=== PATIENT | male | born 1975 | race Hispanic/Latino ===

== ENCOUNTER 2020-10-29 01:04 | Inpatient (IN) | payer OTHER ==
[2020-10-29] VITALS (8 sets, daily range): BP systolic 96–135; BP diastolic 56–80
[~2020-10-29] VITALS: Ht 182.9 cm; Wt 122.5 kg
[2020-10-29] MEDS ORDERED: METOCLOPRAMIDE 10 MG/2 ML VIAL IVP SCH (02:45)
[2020-10-29] MEDS ORDERED: LACTATED RINGERS 1000ML 1,000 ML IV SCH (02:45)
[2020-10-29] MEDS ORDERED: PANTOPRAZOLE 40 MG/VIAL IVP SCH (02:45)
[2020-10-29] MEDS ORDERED: FAMOTIDINE/PF 20 MG/2 ML VIAL IV SCH (02:45)
[2020-10-29] MEDS ORDERED: ONDANSETRON HCL 4 MG/2 ML VIAL IVP SCH (02:45)
[2020-10-29 03:00] LABS: BASOPHILS % (AUTO) 0.6 % (0.0-5.0); EOSINOPHILS % (AUTO) 0.6 % (0.0-8.0); LYMPHOCYTES % (AUTO) 16.6 % (21.0-51.0); MEAN CORPUSCULAR HGB CONC 34.8 g/dL (32.0-36.0); MEAN CORPUSCULAR VOLUME 89.1 fL (79-99); MONOCYTES % (AUTO) 6.6 % (3.0-13.0); NEUTROPHILS % (AUTO) 75.1 % (40.0-77.0); PLATELET COUNT (AUTO) 130 K/uL (130-400); RED BLOOD CELL COUNT(AUTO) 3.03 MIL/uL (4.50-6.20); RED CELL DISTRIBUTION WIDTH 13.9 % (11.0-15.5); WHITE BLOOD COUNT (AUTO) 19.7 K/uL (4.8-10.8)
[2020-10-29 03:18] LABS: INR 1.27 (0.85-1.15); PROTHROMBIN TIME 13.5 SEC (9.6-11.6)
[2020-10-29 03:25] LABS: CREATININE 0.8 mg/dL (0.5-1.5); POTASSIUM 3.8 mmol/L (3.5-5.1)
[2020-10-29 03:29] LABS: BILIRUBIN,TOTAL 1.1 mg/dL (0.2-1.0); TOTAL PROTEIN, SERUM 6.4 g/dL (6.0-8.3)
[2020-10-29] MEDS: PANTOPRAZOLE SODIUM 80 MG in SODIUM CHLORIDE 0.9% 100 ML IV SCH ×2 (03:55→04:05)
[2020-10-29] MEDS ORDERED: ONDANSETRON HCL 4 MG/2 ML VIAL IV PRN (05:00)
[2020-10-29] MEDS: LACTATED RINGERS 1000ML 1,000 ML IV SCH ×2 (05:15→20:27)
[2020-10-29 07:09] LABS: APPEARANCE,URINE Clear (CLEAR); BILIRUBIN,URINE Negative (NEGATIVE); COLOR,URINE Yellow (YELLOW); GLUCOSE, URINE (UA) >=1000 mg/dL (NEGATIVE); KETONES,URINE 15 mg/dL (NEGATIVE); LEUKOCYTE ESTERASE ,URINE Negative (NEGATIVE); NITRATE,URINE Negative (NEGATIVE); OCCULT BLOOD,URINE Negative (NEGATIVE); PH,URINE 5.5 (5.0-8.0); PROTEIN,URINE Negative (NEGATIVE)
[2020-10-29 07:11] LABS: MEAN CORPUSCULAR HEMOGLOBIN 30.6 pg (27.0-33.0); MEAN CORPUSCULAR HGB CONC 33.8 g/dL (32.0-36.0); MEAN CORPUSCULAR VOLUME 90.5 fL (79-99); RED BLOOD CELL COUNT(AUTO) 2.32 MIL/uL (4.50-6.20); WHITE BLOOD COUNT (AUTO) 14.8 K/uL (4.8-10.8)
[2020-10-29 07:17] LABS: HEMOGLOBIN A1C 7.4 % (4.0-6.0)
[2020-10-29 07:21] LABS: % IRON SATURATION 65.5 % (30-44)
[2020-10-29 07:24] LABS: ALBUMIN 2.5 g/dL (3.5-5.0); BILIRUBIN,DIRECT 0.2 mg/dL (0.0-0.3); CREATININE 0.7 mg/dL (0.5-1.5); POTASSIUM 4.1 mmol/L (3.5-5.1); TOTAL PROTEIN, SERUM 5.3 g/dL (6.0-8.3)
[2020-10-29 07:33] LABS: BACTERIA,URINE Rare /HPF (None Seen); MUCUS,URINE Few LPF (None Seen); RBC,URINE 0-1 /HPF (0-1); SQUAMOUS EPITHELIAL CELL,UR Rare /HPF (0-2); WBC,URINE 0-1 /HPF (0-1)
[2020-10-29] MEDS: CEFTRIAXONE SODIUM 1 GM IVP SCH ×2 (08:07→20:27)
[2020-10-29] MEDS ORDERED: PANTOPRAZOLE SODIUM 80 MG in SODIUM CHLORIDE 0.9% 100 ML IV SCH (09:00)
[2020-10-29] MEDS ORDERED: PANTOPRAZOLE 40 MG/VIAL ONE (14:24)
[2020-10-29 14:44] LABS: AMPHET/METH SCREEN,URINE NEGATIVE (NEGATIVE); BARBITURATE SCREEN, URINE NEGATIVE (NEGATIVE); BENZODIAZEPINES SCREEN,URINE NEGATIVE (NEGATIVE); CANNABINOID SCREEN,URINE NEGATIVE (NEGATIVE); COCAINE SCREEN,URINE NEGATIVE (NEGATIVE); OPIATE SCREEN,URINE NEGATIVE (NEGATIVE); PHENCYCLIDINE SCREEN,URINE NEGATIVE (NEGATIVE)
[2020-10-29 14:45] LABS: HEMATOCRIT 21.7 % (42-54)
[2020-10-29] MEDS: INSULIN HUMULIN R 100 UNIT/ML 3ML SQ SCH ×2 (20:29→20:30)
[2020-10-30] VITALS (16 sets, daily range): BP systolic 106–144; BP diastolic 52–79
[2020-10-30] MEDS ORDERED: SODIUM CHLORIDE 0.9% 250 ML ONE (01:34)
[2020-10-30 06:17] LABS: BASOPHILS % (AUTO) 0.5 % (0.0-5.0); EOSINOPHILS % (AUTO) 0.9 % (0.0-8.0); HEMATOCRIT 22.4 % (42-54); LYMPHOCYTES % (AUTO) 26.8 % (21.0-51.0); MEAN CORPUSCULAR HEMOGLOBIN 30.4 pg (27.0-33.0); MEAN CORPUSCULAR HGB CONC 33.9 g/dL (32.0-36.0); MEAN CORPUSCULAR VOLUME 89.6 fL (79-99); MONOCYTES % (AUTO) 9.7 % (3.0-13.0); NEUTROPHILS % (AUTO) 61.4 % (40.0-77.0); NUCLEATED RED BLOOD CELLS 0.6 % (0.0-0.19); PLATELET COUNT (AUTO) 86 K/uL (130-400); RED CELL DISTRIBUTION WIDTH 14.2 % (11.0-15.5); WHITE BLOOD COUNT (AUTO) 12.4 K/uL (4.8-10.8)
[2020-10-30 06:37] LABS: ALBUMIN 2.6 g/dL (3.5-5.0); BILIRUBIN,TOTAL 0.9 mg/dL (0.2-1.0); CREATININE 0.7 mg/dL (0.5-1.5); POTASSIUM 3.7 mmol/L (3.5-5.1); TOTAL PROTEIN, SERUM 5.6 g/dL (6.0-8.3)
[2020-10-30] MEDS: INSULIN HUMULIN R 100 UNIT/ML 3ML SQ SCH ×4 (07:00→20:13)
[2020-10-30] MEDS: CEFTRIAXONE SODIUM 1 GM IVP SCH ×2 (07:08→20:13)
[2020-10-30 07:16] LABS: HEPATITIS A ANTIBODY IGM Negative (Negative); HEPATITIS B CORE IGM Negative (Negative); HEPATITIS Bs ANTIGEN SCREEN P Negative (Negative)
[2020-10-30] MEDS ORDERED: PROPOFOL 10 MG/ML 20ML VIAL IV ONE (11:14)
[2020-10-30] MEDS ORDERED: SIMETHICONE 40 MG/0.6 ML ML ONE (11:16)
[2020-10-30] MEDS ORDERED: MEPERIDINE-PF 25 MG/ML SYG ONE (11:48)
[2020-10-30] MEDS ORDERED: OCTREOTIDE ACETATE 1,250 MCG in SODIUM CHLORIDE 0.9% 250 ML IV SCH (13:15)
[2020-10-30] MEDS ORDERED: IOHEXOL 350 MG/ML 100ML INFUS..BTL IV ONE (14:20)
[2020-10-30] MEDS: PANTOPRAZOLE 40 MG/VIAL IVP SCH (20:13)
[2020-10-30] MEDS: ACETAMINOPHEN 325 MG TAB PO PRN (21:21)
[2020-10-31 00:08] VITALS: BP 115/53
[2020-10-31 04:16] VITALS: BP 124/80
[2020-10-31 04:41] LABS: HEMATOCRIT 21.6 % (42-54); MEAN CORPUSCULAR HEMOGLOBIN 30.4 pg (27.0-33.0); MEAN CORPUSCULAR HGB CONC 33.8 g/dL (32.0-36.0); NUCLEATED RED BLOOD CELLS 0.5 % (0.0-0.19); RED BLOOD CELL COUNT(AUTO) 2.4 MIL/uL (4.50-6.20); RED CELL DISTRIBUTION WIDTH 14.6 % (11.0-15.5); WHITE BLOOD COUNT (AUTO) 7.9 K/uL (4.8-10.8)
[2020-10-31 04:56] LABS: CREATININE 0.7 mg/dL (0.5-1.5); POTASSIUM 3.5 mmol/L (3.5-5.1)
[2020-10-31] MEDS: INSULIN HUMULIN R 100 UNIT/ML 3ML SQ SCH ×4 (05:32→20:48)
[2020-10-31] MEDS: ACETAMINOPHEN 325 MG TAB PO PRN ×2 (05:32→18:13)
[2020-10-31 08:00] VITALS: BP 133/78
[2020-10-31] MEDS: CEFTRIAXONE SODIUM 1 GM IVP SCH ×2 (09:44→20:48)
[2020-10-31] MEDS: PANTOPRAZOLE 40 MG/VIAL IVP SCH ×2 (09:45→20:47)
[2020-10-31 16:00] VITALS: BP 122/71
[2020-10-31 19:00] VITALS: BP 126/69
[2020-10-31 23:00] VITALS: BP 116/71
[2020-11-01 03:00] VITALS: BP 98/57
[2020-11-01 05:59] LABS: HEMATOCRIT 21.5 % (42-54); MEAN CORPUSCULAR HEMOGLOBIN 31.2 pg (27.0-33.0); MEAN CORPUSCULAR VOLUME 91.9 fL (79-99); PLATELET COUNT (AUTO) 65 K/uL (130-400); RED BLOOD CELL COUNT(AUTO) 2.34 MIL/uL (4.50-6.20); RED CELL DISTRIBUTION WIDTH 16.1 % (11.0-15.5); WHITE BLOOD COUNT (AUTO) 5.6 K/uL (4.8-10.8)
[2020-11-01 06:13] LABS: CREATININE 0.7 mg/dL (0.5-1.5); POTASSIUM 3.8 mmol/L (3.5-5.1)
[2020-11-01] MEDS: INSULIN HUMULIN R 100 UNIT/ML 3ML SQ SCH ×2 (07:07→11:19)
[2020-11-01 08:00] VITALS: BP 128/72
[2020-11-01] MEDS: CEFTRIAXONE SODIUM 1 GM IVP SCH (08:04)
[2020-11-01] MEDS: PANTOPRAZOLE 40 MG/VIAL IVP SCH (08:04)
[2020-11-01] MEDS ORDERED: EPOETIN ALFA-EPBX (NON-ESRD) 10,000 UNIT/ML VIAL SQ SCH (13:00)
[2020-11-01] MEDS ORDERED: PANT40TA54 PO (13:06)
== END 2020-11-01 14:00 | disposition home or self-care (01) | DRG 377 ==
LOC: EDH 01:04 → EDHIP 01:05 → UNDOADMIN 01:15 → EDHIP 01:15 → 2DH 15:30
PROVIDERS: ADMIT Internal Medicine; ATTEND Internal Medicine
PROC: 30233N1 Transfusion of Nonautologous Red Blood Cells into Peripheral Vein, Percutaneous Approach (ICD-10-PCS; principal; 2020-10-30)
PROC: 06L38CZ Occlusion of Esophageal Vein with Extraluminal Device, Via Natural or Artificial Opening Endoscopic (ICD-10-PCS; 2020-10-30)
PROC: 30233K1 Transfusion of Nonautologous Frozen Plasma into Peripheral Vein, Percutaneous Approach (ICD-10-PCS; 2020-10-30)
DX: K92.2 Gastrointestinal hemorrhage, unspecified (principal); R57.8 Other shock; D62 Acute posthemorrhagic anemia; E87.2 Acidosis; R57.9 Shock, unspecified; K92.0 Hematemesis; I85.00 Esophageal varices without bleeding; E11.65 Type 2 diabetes mellitus with hyperglycemia; E66.01 Morbid (severe) obesity due to excess calories; D72.829 Elevated white blood cell count, unspecified; D69.6 Thrombocytopenia, unspecified; E86.0 Dehydration; F55.8 Abuse of other non-psychoactive substances; Z20.822 Contact with and (suspected) exposure to COVID-19; D64.9 Anemia, unspecified; T39.395A Adverse effect of other nonsteroidal anti-inflammatory drugs [NSAID], initial encounter; Y92.89 Other specified places as the place of occurrence of the external cause
CPT/HCPCS: 36415; 43244; 71045; 74160; 76705; 80048; 80053; 80074; 80076; 80305; 81001; 82948; 83036; 83540; 83550; 83605; 85014; 85018; 85025; 85027; 85610; 86850; 86900; 86901; 86923; 86927; 93005; A4606; C9113; G0378; J0696; J1815; J2175; J2354; J2405; J2704; J2765; J3490; J7030; J7050; J7120; P9016; P9017; Q9967

== ENCOUNTER 2021-12-22 01:45 | Inpatient (IN) | payer OTHER ==
[~2021-12-22] VITALS: Ht 180.3 cm; Wt 121.9 kg
[~2021-12-22 01:45] MED LIST: PANT40TA54 PO
[2021-12-22] MEDS ORDERED: PANTOPRAZOLE 40 MG/VIAL IVP ONE (02:30)
[2021-12-22] MEDS ORDERED: 0.9% NACL 500ML IV.SOLN 500 ML IV ONE (02:30)
[2021-12-22 02:54] LABS: APPEARANCE,URINE CLEAR (CLEAR); BILIRUBIN,URINE NEGATIVE (NEGATIVE); COLOR,URINE YELLOW (YELLOW); GLUCOSE, URINE (UA) NEGATIVE (NEGATIVE); KETONES,URINE NEGATIVE (NEGATIVE); LEUKOCYTE ESTERASE ,URINE NEGATIVE (NEGATIVE); NITRATE,URINE NEGATIVE (NEGATIVE); OCCULT BLOOD,URINE NEGATIVE (NEGATIVE); PH,URINE 7.5 (5.0-8.0); PROTEIN,URINE NEGATIVE (NEGATIVE)
[2021-12-22 02:55] LABS: BASOPHILS % (AUTO) 0.5 % (0.0-5.0); EOSINOPHILS % (AUTO) 1.8 % (0.0-8.0); HEMATOCRIT 30.8 % (42-54); MEAN CORPUSCULAR HEMOGLOBIN 27.8 pg (27.0-33.0); MEAN CORPUSCULAR HGB CONC 33.1 g/dL (32.0-36.0); MEAN CORPUSCULAR VOLUME 83.9 fL (79-99); MONOCYTES % (AUTO) 8.3 % (3.0-13.0); NEUTROPHILS % (AUTO) 67.2 % (40.0-77.0); PLATELET COUNT (AUTO) 89 K/uL (130-400); RED BLOOD CELL COUNT(AUTO) 3.67 MIL/uL (4.50-6.20); RED CELL DISTRIBUTION WIDTH 14.4 % (11.0-15.5); WHITE BLOOD COUNT (AUTO) 8.2 K/uL (4.8-10.8)
[2021-12-22 03:00] LABS: CREATININE 0.7 mg/dL (0.5-1.5); POTASSIUM 3.8 mmol/L (3.5-5.1)
[2021-12-22] MEDS ORDERED: CEFTRIAXONE 1G VIAL IVP ONE (03:00)
[2021-12-22] MEDS ORDERED: OCTREOTIDE ACETATE 100 MCG/ML AMP IVP ONE (03:00)
[2021-12-22] MEDS ORDERED: ONDANSETRON 4MG INJ IVP ONE (03:00)
[2021-12-22] MEDS ORDERED: OCTREOTIDE ACETATE 1,000 MCG in DEXTROSE 5%-WATER 195 ML IV SCH (03:00)
[2021-12-22 03:03] LABS: INR 1.2 (0.85-1.15); PROTHROMBIN TIME 12.9 SEC (9.6-11.6)
[2021-12-22 03:05] LABS: ALBUMIN 3.4 g/dL (3.5-5.0); TOTAL PROTEIN, SERUM 7.3 g/dL (6.0-8.3)
[2021-12-22] MEDS: OCTREOTIDE ACETATE 1,250 MCG in 0.9% NACL 250ML 250 ML IV SCH (03:10)
[2021-12-22] MEDS ORDERED: MORPHINE 4 MG SYG IV PRN (05:00)
[2021-12-22] MEDS ORDERED: ONDANSETRON 4MG INJ IV PRN (05:00)
[2021-12-22] MEDS ORDERED: MORPHINE 2 MG SYG IV PRN (05:00)
[2021-12-22] MEDS ORDERED: HYDRALAZINE 20MG/ML VIAL IV PRN (05:00)
[2021-12-22] MEDS: PANTOPRAZOLE 40MG INJ 80 MG in 0.9%NACL 100ML 100 ML IV SCH ×2 (05:09→14:34)
[2021-12-22] MEDS: LACTATED RINGERS 1000ML 1,000 ML IV SCH (05:15)
[2021-12-22 07:16] VITALS: BP 125/79
[2021-12-22] MEDS ORDERED: COMPOUND IV REFRIGERATED 1 EACH IVSOLN MISC PRN (12:00)
[2021-12-22 12:11] VITALS: BP 120/70
[2021-12-22 16:22] VITALS: BP 132/76
[2021-12-22 20:11] VITALS: BP 118/65
[2021-12-22 23:41] VITALS: BP 99/55
[2021-12-23] VITALS (23 sets, daily range): BP systolic 95–130; BP diastolic 49–77
[2021-12-23] MEDS: LACTATED RINGERS 1000ML 1,000 ML IV SCH ×3 (01:00→20:33)
[2021-12-23 05:05] LABS: BASOPHILS % (AUTO) 0.8 % (0.0-5.0); EOSINOPHILS % (AUTO) 2.4 % (0.0-8.0); HEMATOCRIT 27.2 % (42-54); LYMPHOCYTES % (AUTO) 23.6 % (21.0-51.0); MEAN CORPUSCULAR HEMOGLOBIN 27.7 pg (27.0-33.0); MEAN CORPUSCULAR HGB CONC 32.7 g/dL (32.0-36.0); MEAN CORPUSCULAR VOLUME 84.7 fL (79-99); MONOCYTES % (AUTO) 11.9 % (3.0-13.0); NEUTROPHILS % (AUTO) 61.3 % (40.0-77.0); PLATELET COUNT (AUTO) 53 K/uL (130-400); RED BLOOD CELL COUNT(AUTO) 3.21 MIL/uL (4.50-6.20); RED CELL DISTRIBUTION WIDTH 14.5 % (11.0-15.5); WHITE BLOOD COUNT (AUTO) 3.7 K/uL (4.8-10.8)
[2021-12-23 05:28] LABS: CREATININE 0.8 mg/dL (0.5-1.5)
[2021-12-23 05:37] LABS: INR 1.2 (0.85-1.15); PROTHROMBIN TIME 12.9 SEC (9.6-11.6)
[2021-12-23 05:38] LABS: PARTIAL THROMBOPLASTIN TIME 27.5 SEC (26.3-35.5)
[2021-12-23] MEDS: PANTOPRAZOLE 40MG INJ 80 MG in 0.9%NACL 100ML 100 ML IV SCH ×2 (05:46→20:33)
[2021-12-23] MEDS ORDERED: PROPOFOL 10 MG/ML 20ML VIAL IV ONE ×2 (18:05)
[2021-12-23] MEDS ORDERED: MEPERIDINE-PF 50 MG/ML SYG ONE (18:46)
[2021-12-24 03:57] VITALS: BP 120/60
[2021-12-24 05:04] LABS: HEMATOCRIT 27.5 % (42-54); MEAN CORPUSCULAR HEMOGLOBIN 28.4 pg (27.0-33.0); MEAN CORPUSCULAR HGB CONC 33.5 g/dL (32.0-36.0); MEAN CORPUSCULAR VOLUME 84.9 fL (79-99); RED BLOOD CELL COUNT(AUTO) 3.24 MIL/uL (4.50-6.20); RED CELL DISTRIBUTION WIDTH 14.4 % (11.0-15.5)
[2021-12-24 05:25] LABS: CREATININE 0.7 mg/dL (0.5-1.5); POTASSIUM 3.9 mmol/L (3.5-5.1)
[2021-12-24] MEDS: OCTREOTIDE ACETATE 1,250 MCG in 0.9% NACL 250ML 250 ML IV SCH (05:55)
[2021-12-24] MEDS: LACTATED RINGERS 1000ML 1,000 ML IV SCH (06:06)
[2021-12-24 08:08] VITALS: BP 118/67
[2021-12-24] MEDS ORDERED: PANT40TA54 PO (10:34)
[2021-12-24 11:58] VITALS: BP 127/64
== END 2021-12-24 14:45 | disposition home or self-care (01) | DRG 378 ==
LOC: EDH 01:45 → EDHIP 01:46 → 3DH 08:00
PROVIDERS: ADMIT Hospitalist; ATTEND Hospitalist
PROC: 06L38CZ Occlusion of Esophageal Vein with Extraluminal Device, Via Natural or Artificial Opening Endoscopic (ICD-10-PCS; principal; 2021-12-23)
DX: K29.01 Acute gastritis with bleeding (principal); D61.818 Other pancytopenia; D64.9 Anemia, unspecified; E66.9 Obesity, unspecified; I25.10 Atherosclerotic heart disease of native coronary artery without angina pectoris; I85.10 Secondary esophageal varices without bleeding; K74.60 Unspecified cirrhosis of liver; Z20.822 Contact with and (suspected) exposure to COVID-19; Z83.3 Family history of diabetes mellitus; Z82.49 Family history of ischemic heart disease and other diseases of the circulatory system; I25.2 Old myocardial infarction; Z68.37 Body mass index [BMI] 37.0-37.9, adult
CPT/HCPCS: 36415; 43244; 74176; 80048; 80053; 81003; 82270; 85025; 85027; 85610; 85730; 86677; 86850; 86900; 86901; 87635; 93005; 99291; A4606; C9113; G0378; J0696; J2175; J2270; J2354; J2704; J7030; J7050; J7060; J7120

== ENCOUNTER 2024-09-24 19:25 | Inpatient (IN) | payer BC ==
[~2024-09-24] VITALS: Ht 167.6 cm; Wt 99.5 kg
[~2024-09-24 19:25] MED LIST changes: +PANT40VI PO; +PROP10TA72 PO
--- NOTE | 2024-09-24 20:38 | ERN ---
General Chief Complaint: Multiple Complaints Stated Complaint: BACK PAIN, SWOLLEN HAND AND FEET Time Seen by MD: 19:28 Source: patient, family History of Present Illness Initial Comments Patient is a 49-year-old male who was here on the 10 of September where he received an injection to his sciatic nerve. For the last week his neurological symptoms seemed to have gotten worse to the point that he can not even move his left arm because of shoulder pain. His right hand is swollen and extremely painful. 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 He also has increased swelling to bilateral legs. No fevers or chills no associated GI symptoms no chest pain or shortness of breath. Allergies: Coded Allergies: No Known Drug Allergies (Unverified Allergy, Unknown, 10/29/20) Home Meds Active Scripts Pantoprazole Sodium (Protonix IV) 40 Mg Vial, 40 MG PO DAILY for 60 Days, #60 MG Prov:JED DRAKE NP 06/05/23 Propranolol HCl (Inderal) 10 Mg Tab, 10 MG PO DAILY for 30 Days, #30 TAB Prov:JED DRAKE NP 06/05/23 Pantoprazole Sodium (Pantoprazole Sodium) 40 Mg Tablet.dr, 40 MG PO DAILY, #30 TAB 2 Refills Prov:CHRISTIANO OCONNOR 12/24/21 Past Medical History Past Medical History: Anemia, Other Medical History Other: GASTRIC ULCERS, ESOPHAGEAL VARICIES, SCIATICA Past Surgical History: None Surgical History Other: EGD Social History Social History: Negative, Lives with family Constitutional: (+) chills EENTM: (+) eye pain, (+) blurred vision, (+) tearing, (+) double vision Respiratory: (+) cough, (+) orthopnea Cardiovascular: (+) chest pain Gastrointestinal/Abdominal: (+) nausea, (+) vomiting Skin: (-) laceration, (-) contusion, (-) abrasion, (-) abscess, (-) rash, (-) change in color, (-) change in hair, (-) change in nails, (-) diaphoresis, (-) dryness, (-) other documentation Neuro: (-) altered mental status, (-) headache, (-) syncope, (-) paralysis, (-) numbness, (-) seizure, (-) pre-existing deficit, (-) tremors, (-) weakness, (-) dizziness, (-) slurred speech, (-) vertigo, (-) other documentation Physical Exam General Appearance: (+) moderate distress Orientation: (+) alert Head/Face Trauma: No Eye: bilateral eye normal inspection, bilateral eye PERRL, bilateral eye EOMI Ear, Nose, Throat: (+) hearing grossly normal, (+) normal ENT inspection, (+) moist mucous membraine Ear, Nose, Throat Comment Patient does have leukoplakia on his gums and his cheeks and tongue. Neck: (-) normal inspection, (-) supple, (-) full range of motion, (-) no JVD, (-) non-tender, (-) no bruit, (-) tender, (-) limited range of motion, (-) tender lateral, (-) tender midline, (-) thyromegaly, (-) lymphadenopathy, (-) masses, (-) carotid bruit, (-) other documentaion Respiratory: (+) chest non-tender, (+) lungs clear, (+) well ventilated Heart: (+) regular, (+) no gallop Vascular Comment Patient does have bilateral lower extremity edema. 3+ pitting Gastrointestinal: (+) soft, (+) non-tender, (+) no organomegaly Back: (+) normal inspection, (+) no CVA tenderness Extremities Comment Patient has difficulty abducting his left arm from his body it is tender along the tract of the supraspinatus muscle. Neurologic/Psychiatric: (+) no sensory deficits Results Laboratory and Microbiology Lab and Micro Result Laboratory Tests Test 09/24/24 20:47 09/24/24 22:18 09/25/24 02:04 Sodium Level 136 mmol/L (136-145) Potassium Level 4.8 mmol/L (3.5-5.1) Chloride Level 103 mmol/L (101-111) Carbon Dioxide Level 27 mmol/L (21-32) Blood Urea Nitrogen 32 mg/dL (7-18) H Creatinine 1.0 mg/dL (0.5-1.3) Glomerular Filtration Rate Calc 92 mL/min (>90) Random Glucose 271 mg/dL (70-105) H Lactic Acid Level 2.5 mmol/L (0.8-2.5) 1.7 mmol/L (0.8-2.5) Total Calcium 7.5 mg/dL (8.5-10.1) L Total Bilirubin 1.4 mg/dL (0.2-1.0) H Aspartate Amino Transf (AST/SGOT) 22 U/L (10-37) Alanine Aminotransferase (ALT/SGPT) 33 U/L (12-78) Alkaline Phosphatase 88 U/L (50-136) Troponin I High Sensitivity < 4 ng/L (4-75) L B-Type Natriuretic Peptide 56 pg/mL (0-100) Total Protein 5.9 g/dL (6.0-8.3) L Albumin 2.1 g/dL (3.5-5.0) L Procalcitonin 0.50 ng/mL (0.05-0.5) Total Creatine Kinase 47 U/L (21-232) # White Blood Count 6.4 K/uL (4.8-10.8) Red Blood Count 3.13 MIL/uL (4.50-6.20) L Hemoglobin 5.8 g/dL (14.0-18.0) *L Hematocrit 21.1 % (42-54) L Mean Corpuscular Volume 67.4 fL (79-99) L Mean Corpuscular Hemoglobin 18.5 pg (27.0-33.0) L Mean Corpuscular Hemoglobin Concent 27.5 g/dL (32.0-36.0) L Red Cell Distribution Width 18.6 % (11.0-15.5) H Platelet Count 48 K/uL (130-400) L Mean Platelet Volume 9.3 fL (7.5-10.5) Immature Granulocyte % (Auto) 1.7 % (0-1) H Neutrophils (%) (Auto) 83.1 % (40.0-77.0) H Lymphocytes (%) (Auto) 9.0 % (21.0-51.0) L Monocytes (%) (Auto) 6.0 % (3.0-13.0) Eosinophils (%) (Auto) 0.2 % (0.0-8.0) Basophils (%) (Auto) 0.0 % (0.0-5.0) Neutrophils # (Auto) 5.3 K/uL (1.8-7.7) Lymphocytes # (Auto) 0.6 K/uL (1.0-4.8) L Monocytes # (Auto) 0.4 K/uL (0.1-1.0) Eosinophils # (Auto) 0.01 K/uL (0.00-0.70) Basophils # (Auto) 0.00 K/uL (0.00-0.20) Absolute Immature Granulocyte (auto 0.11 K/uL (0-1) Nucleated Red Blood Cells 0.3 % (0.0-0.19) H White Cell Morphology Comment See comments Platelet Morphology Comment MARKED DECREASE Red Blood Cell Morphology See comments Hemoglobin A1c 5.2 % (4.0-6.0) Estimated Average Glucose (eAG) 103 mg/dL (70-126) C-Reactive Protein, Quantitative 68.00 mg/L (0.5-3.0) H Thyroid Stimulating Hormone (TSH) 0.43 uIU/mL (0.36-3.74) MDM Patient has multiple problems going on with swelling to his arms pain to his left shoulder pitting edema and leukoplakia. I will start by getting a CBC and a complete metabolic panel to see if there was a problem with his liver or kidneys causing the edema. I will get a CK because of the right arm and hand swelling. Chest x-ray. Patient's chest x-ray did show possible cephalization. Patient's shoulder films are negative patient's hand films are negative. Chemistry panel showed increased T bili. Iron levels were adequate. CBC showed a hemoglobin of 5.8. The swelling in his bilateral lower extremities maybe explained by his anemia. I do not know the cause of his right arm swelling there was no DVT in his right arm. I think his immobility on his left arm could be explained by a rotator cuff injury. I do not know the cause of his leukoplakia in his mouth. Patient states it is because he takes a pill that is white but I am not sure it is that is simple. A cause of his severe anemia is not due to low iron. This will need further workup. I have called the hospitalist service and they have agreed to take him on their service. ED Course Orders Procedure Category Date Status Time 12 Lead Ekg Tracing- EKG 09/24/24 Complete Technical 20:39 B-Type Natriuretic LAB 09/24/24 Complete Peptide 20:39 Basic Metabolic Panel LAB 09/24/24 Complete 20:39 Comprehensive LAB 09/24/24 Complete Metabolic Panel 20:39 Lactic Acid LAB 09/24/24 Complete 20:39 Procalcitonin LAB 09/24/24 Complete 20:39 Troponin I High LAB 09/24/24 Complete Sensitivity 20:39 Chest 1vw RAD 09/24/24 Resulted 20:39 Creatine Kinase, Total LAB 09/24/24 Complete 22:05 Shoulder Comp 2+Vws Lt RAD 09/24/24 Taken 22:05 Us Venous Doppler US 09/24/24 Taken Unilateral 22:05 Fungitell Serum Or Csf LAB 09/24/24 In Process 22:05 Ct Abdomen/Pelvis CT 09/24/24 Resulted W/Wo Contras 22:05 Hand 3+Vws Rt RAD 09/24/24 Taken 23:23 Iohexol (Omnipaque) PHA 09/24/24 Complete 23:08 Lactic Acid (Removed) LAB 09/25/24 Complete 00:36 Cbc With Differential LAB 09/25/24 Complete 01:52 Type And Screen BBK 09/25/24 In Process 02:27 Hydromorphone 1 Mg PHA 09/25/24 Complete Inj (Dilaudid 1mg Inj 03:00 Prothrombin Time With LAB 09/25/24 Logged INR 03:52 Rbc - Preoperative BBK 09/25/24 In Process Order 03:40 Current Medications Medications (Trade) Dose Ordered Sig/Kali Route PRN Reason Start Time Stop Time Status Last Admin Dose Admin Hydromorphone HCl (DiLAUDid 1MG INJ) 1 mg ONCE ONCE IVP 09/25/24 03:00 09/25/24 03:01 DC 09/25/24 03:24 Iohexol (Omnipaque) 75 ml STK-MED ONCE IV 09/24/24 23:08 09/24/24 23:08 DC Vital Signs Date Time Temp Pulse Resp B/P (MAP) Pulse Ox O2 Delivery O2 Flow Rate FiO2 09/25/24 03:56 98.4 82 20 112/62 96 Room Air* 0 09/25/24 01:55 98.6 79 19 116/58 97 Room Air* 0 09/24/24 23:19 98.4 76 18 108/56 98 Room Air* 0 09/24/24 20:28 98.8 85 18 139/61 100 Room Air 0 DX & DISP Disposition: Inpatient Departure Impression: Primary Impression: Anemia Additional Impression: Rotator cuff (capsule) sprain Condition: Stable Referrals: SONIA TOLLIVER MD (PCP) ANISHA BARRAGAN MD September 24, 2024 20:38
--- NOTE | 2024-09-24 20:50 | EKG ---
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
--- NOTE | 2024-09-24 21:22 | HMCIMG ---
CHEST 1VW CLINICAL HISTORY: Fever. COMPARISON: 10/29/2020 TECHNIQUE: Single view of the chest was obtained. FINDINGS: There is pulmonary congestion or interstitial infiltrates. The cardiac size and mediastinum are unremarkable. The bony structures are within normal limits. IMPRESSION: Mild pulmonary vascular congestion or interstitial infiltrates.
[2024-09-24 21:23] LABS: POTASSIUM 4.8 mmol/L (3.5-5.1)
[2024-09-24 21:33] LABS: ALBUMIN 2.1 g/dL (3.5-5.0); BILIRUBIN,TOTAL 1.4 mg/dL (0.2-1.0); TOTAL PROTEIN, SERUM 5.9 g/dL (6.0-8.3)
[2024-09-24] MEDS ORDERED: IOHEXOL-350 75 ML VIAL IV ONE (23:08)
--- NOTE | 2024-09-24 23:41 | HMCIMG ---
CT ABDOMEN/PELVIS W/WO CONTRAS HISTORY: Cirrhosis COMPARISON: 06/03/2023 TECHNIQUE: Multiple sequential axial images of the abdomen and pelvis were obtained from the dome of the diaphragm through symphysis pubis. Patient was not given contrast through intravenous route. Oral contrast was not given. FINDINGS: No pleural effusion is seen bilaterally. There is no evidence of parenchymal disease or pulmonary nodule of the visualized lower lungs. Degenerative changes of the thoracolumbar spine are present. The heart is not enlarged. Cirrhosis changes of the liver are noted. The liver measured 13 cm. Spleen is enlarged measuring 23 cm. There are extensive abdominal varices. Gallbladder is poorly distended gallbladder wall thickening. Mesenteric fat stranding is seen. Nonspecific small bowel wall thickening is seen. There are bilateral inguinal hernias with fluid content. The liver, spleen, adrenal glands and pancreas are unremarkable. There is no evidence of hydronephrosis bilaterally. No evidence of renal stone is seen. Fecal material is seen in the colon. There are normal size retroperitoneal and mesenteric lymph nodes. Small ascites is seen predominantly in the pelvis. Atherosclerotic changes are present. Pelvic sidewalls are symmetric bilaterally. Bladder is well distended without wall thickening. IMPRESSION: 1. Cirrhotic liver with enlarged spleen and abdominal varices. Small ascites. CT was performed with one or more following dose reduction techniques: automated exposure control, adjustment of the mA and kv according to patient's size, or use of a iterative reconstruction technique.
[2024-09-25 02:18] LABS: EOSINOPHILS # (AUTO) 0.01 K/uL (0.00-0.70); EOSINOPHILS % (AUTO) 0.2 % (0.0-8.0); HEMATOCRIT 21.1 % (42-54); IMMATURE GRANULOCYTE ABSOLUTE 0.11 K/uL (0-1); LYMPHOCYTES # (AUTO) 0.6 K/uL (1.0-4.8); MEAN CORPUSCULAR HEMOGLOBIN 18.5 pg (27.0-33.0); MEAN CORPUSCULAR HGB CONC 27.5 g/dL (32.0-36.0); MEAN CORPUSCULAR VOLUME 67.4 fL (79-99); MONOCYTES # (AUTO) 0.4 K/uL (0.1-1.0); NEUTROPHILS # (AUTO) 5.3 K/uL (1.8-7.7); NEUTROPHILS % (AUTO) 83.1 % (40.0-77.0); NUCLEATED RED BLOOD CELLS 0.3 % (0.0-0.19); PLATELET COUNT (AUTO) 48 K/uL (130-400); RED BLOOD CELL COUNT(AUTO) 3.13 MIL/uL (4.50-6.20); RED CELL DISTRIBUTION WIDTH 18.6 % (11.0-15.5); WHITE BLOOD COUNT (AUTO) 6.4 K/uL (4.8-10.8)
[2024-09-25 03:20] LABS: PLATELET MORPHOLOGY COMMENT MARKED DECREASE
[2024-09-25] MEDS: hydroMORPHone 1 MG INJ IVP ONE (03:24)
[2024-09-25] MEDS ORDERED: acetaMINOPHEN 650 MG SUPPOSITORY RC PRN (04:30)
[2024-09-25] MEDS ORDERED: hydrALAZine 20MG/ML VIAL IV PRN (04:30)
[2024-09-25] MEDS ORDERED: TEMAZepam 15 MG CAPSULE PO PRN (04:30)
--- NOTE | 2024-09-25 04:53 | HP ---
[facility] HISTORY AND PHYSICAL Date of Service: September 25, 2024 Time of Service: 04:53 PCP: Dr. Dixon Chiang Attending/Supervising physicians: Dr. Guerrero and Dr. Krishna Springer HISTORY OF PRESENT ILLNESS: Mr. Madrigal is a 49-year-old male with a history of esophageal viruses who presented to the ED with chief complaint of worsening bilateral lower extremity edema and right hand edema, and left arm pain/shoulder over the last week. The patient was here on the 10 of September where he received an injection to his sciatic nerve. The patient reported that his is right hand is swollen and extremely painful. 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 The patient denied any history of cirrhosis, fevers, chills, associated GI symptoms, chest pain or shortness of breath. Hemoglobin was 5.8 and platelet [address] abdomen and pelvis without contrast: Cirrhotic liver with enlarged spleen and abdominal varices. Small ascites. Chest x-ray: Mild pulmonary vascular congestion or interstitial infiltrates. The patient denied black stools or bright red blood in the stool. He had a recent admission for the same. I assessed the patient in ED 14. The patient appeared chronically ill, breathing was even and unlabored, in no distress. I informed him of labs, diagnostic and plan of care. He verbalized understanding and is in agreement with the plan. REVIEW OF SYSTEMS 12-point ROS reviewed with the patient. Pertinent positives mentioned above. Otherwise negative, noncontributory or non-pertinent. PAST MEDICAL HISTORY: As mentioned above PAST SURGICAL HISTORY: EGD PAST SOCIAL HISTORY: denied: Alcohol use (Quit 8 years ago. Reports would only drink in the weekends about a 12 pack) Denied tobacco and illicit drug use. Coded Allergies: No Known Drug Allergies (Unverified Allergy, Unknown, 10/29/20) PHYSICAL EXAM GENERAL APPEARANCE: The patient is awake, alert, and oriented, in no acute cardiopulmonary distress. NEUROLOGICAL: Cranial nerves II-XII grossly intact. Motor is 5/5 in bilateral upper and lower extremities proximal to distal. No sensory deficits. HEENT: Face is symmetric. Pupils are equal and reactive. Extraocular movements are intact. NECK: Supple. No JVD. No thyromegaly. No submental, submandibular, pre- /postauricular, occipital or supraclavicular lymphadenopathy. CHEST: Normal chest expansion. No Telemetry. LUNGS: Absence of any rales, rhonchi or any wheezing. CARDIOVASCULAR: Regular. S1 and S2 normal. No appreciable rubs, murmurs or gallops. ABDOMEN: Soft, nontender, and nondistended. There is no rebound, voluntary guarding, or rigidity. : Deferred. No Quan. EXTREMITIES: Non-edematous and not cyanotic. No clubbing. Good capillary refill. SKIN: No skin breakdown. Vital Sign (Last 24 Hours) 09/25/24 03:56 Temp 98.4 Pulse 82 Resp 20 B/P (MAP) 112/62 Pulse Ox 96 O2 Delivery Room Air* O2 Flow Rate 0 FiO2 21 LABS: Laboratory: Test 09/25/24 02:04 09/24/24 22:18 09/24/24 20:47 Range/Units White Blood Count 6.4 4.8-10.8 K/uL Red Blood Count 3.13 L 4.50-6.20 MIL/uL Hemoglobin 5.8 *L 14.0-18.0 g/dL Hematocrit 21.1 L 42-54 % Mean Corpuscular Volume 67.4 L 79-99 fL Mean Corpuscular Hemoglobin 18.5 L 27.0-33.0 pg Mean Corpuscular Hemoglobin Concent 27.5 L 32.0-36.0 g/dL Red Cell Distribution Width 18.6 H 11.0-15.5 % Platelet Count 48 L 130-400 K/uL Mean Platelet Volume 9.3 7.5-10.5 fL Immature Granulocyte % (Auto) 1.7 H 0-1 % Neutrophils (%) (Auto) 83.1 H 40.0-77.0 % Lymphocytes (%) (Auto) 9.0 L 21.0-51.0 % Monocytes (%) (Auto) 6.0 3.0-13.0 % Eosinophils (%) (Auto) 0.2 0.0-8.0 % Basophils (%) (Auto) 0.0 0.0-5.0 % Neutrophils # (Auto) 5.3 1.8-7.7 K/uL Lymphocytes # (Auto) 0.6 L 1.0-4.8 K/uL Monocytes # (Auto) 0.4 0.1-1.0 K/uL Eosinophils # (Auto) 0.01 0.00-0.70 K/uL Basophils # (Auto) 0.00 0.00-0.20 K/uL Absolute Immature Granulocyte (auto 0.11 0-1 K/uL Nucleated Red Blood Cells 0.3 H 0.0-0.19 % White Cell Morphology Comment See comments Platelet Morphology Comment MARKED DECREASE Red Blood Cell Morphology See comments Lactic Acid Level 1.7 0.8-2.5 mmol/L Total Creatine Kinase 47 # 21-232 U/L Sodium Level 136 136-145 mmol/L Potassium Level 4.8 3.5-5.1 mmol/L Chloride Level 103 101-111 mmol/L Carbon Dioxide Level 27 21-32 mmol/L Blood Urea Nitrogen 32 H 7-18 mg/dL Creatinine 1.0 0.5-1.3 mg/dL Glomerular Filtration Rate Calc 92 >90 mL/min Random Glucose 271 H 70-105 mg/dL Total Calcium 7.5 L 8.5-10.1 mg/dL Total Bilirubin 1.4 H 0.2-1.0 mg/dL Aspartate Amino Transf (AST/SGOT) 22 10-37 U/L Alanine Aminotransferase (ALT/SGPT) 33 12-78 U/L Alkaline Phosphatase 88 50-136 U/L Troponin I High Sensitivity < 4 L 4-75 ng/L B-Type Natriuretic Peptide 56 0-100 pg/mL Total Protein 5.9 L 6.0-8.3 g/dL Albumin 2.1 L 3.5-5.0 g/dL Procalcitonin 0.50 0.05-0.5 ng/mL Current Medications Medications (Trade) Dose Ordered Sig/Kali Route PRN Reason Start Time Stop Time Status Last Admin Dose Admin Acetaminophen (TYLenol 325MG TAB) 650 mg Q6H PRN PO FEVER/MILD PAIN LEVEL 1-3 09/25/24 04:30 10/25/24 04:29 Acetaminophen (TYLenol 650MG SUPPOSITORY) 650 mg Q6H PRN RC FEVER / MILD PAIN 1-3 IF NPO 09/25/24 04:30 10/25/24 04:29 Hydralazine HCl (APRESOLine 20MG INJ) 10 mg Q2H PRN IV SBP GREATER THAN 160 09/25/24 04:30 10/25/24 04:29 Insulin Human Regular (humuLIN R 100 UNIT/ML 3ML) INSULIN SLIDING SCAL... Q6H6 SQ 09/25/24 06:00 10/25/24 05:59 Ondansetron HCl (zoFRAN 4MG INJ) 4 mg Q6H PRN IVP NAUSEA/VOMITING 09/25/24 04:30 10/25/24 04:29 Temazepam (restORIL 15 MG CAP) 15 mg HS PRN PO INSOMNIA/SLEEP 09/25/24 04:30 10/25/24 04:29 DIAGNOSTICS / RADIOLOGY: [ ] ASSESSMENT: Severe anemia, POA requiring blood transfusion Cirrhotic liver with enlarged spleen, per CT 09/24/2024 Abdominal varices, per CT 09/24/2024 Small ascites, per CT 09/24/2024 Mild pulmonary vascular congestion or interstitial infiltrates, per chest x-ray on 09/24/2024 Thrombocytopenia, POA Bilateral lower extremity edema and right hand edema Elevated D-dimer rule out PE/DVT Hyperglycemia Protein calorie malnutrition/hypoalbuminemia Obese, BMI 34.4 Hx of upper GI bleed likely esophageal varices, possible ulcers-cause NSAIDs use [hx of Ardosons (Indomethacine) use] History of esophageal varus, EGD PLAN: Admit to medical floor with telemetry monitoring. X1 unit of PRBCs now and x1 unit of platelets now. Hemoglobin every 6 hours and transfuse p.r.n. hemoglobin less than seven. Keep NPO. Protonix 40 mg IV b.i.d.. Sandostatin 50 mcg IV bolus then 50 micrograms/hour IV infusion for72 hours. Consult GI. Obtain guaiac. P.r.n. medications for: Pain management, nausea, vomiting, fever, hypertension. Obtain CT PE protocol. Obtain bilateral venous Doppler. ED date of venous Doppler of right upper extremity. Glucometer checks q.6 hours with an 1/2 insulin sliding scale coverage per protocol p.r.n. Blood pressure checks every 4 hours and as needed. Reconcile home medications once available. A.m. labs: CBC, CMP, Mag, phos, TSH, A1c. Monitor renal and liver function. Monitor electrolytes and treat accordingly. GI and DVT prophylaxis: Protonix and SCDs. (no blood thinners for now due to severe anemia) ADVANCED CARE PLANNING 1. Which of the following were discussed? Hospice Care - No Therapeutic options - Yes Advance Directives - Yes Other discussions - 2. Discussed with who? Patient 3. Voluntary nature of this service was explained to the patient? Yes 4. Amount of time spent - __ over 35 minutes 5. Reviewed by Physician? (if this service was performed by NPP) Yes ATTESTATION BY PHYSICIAN I have seen and examined the patient. I reviewed the documentation, medical decision making, and treatment plan as noted by the mid-level provider above. I agree with the findings and plan of care. RITU MALDONADO INFECTIOUS DISEASE PHYSICIAN September 25, 2024 04:53
--- NOTE | 2024-09-25 04:55 | HP ---
[facility] HISTORY AND PHYSICAL Date of Service: September 25, 2024 Time of Service: 04:54 HISTORY OF PRESENT ILLNESS: Mr. Madrigal is a 49-year-old male who was here on the 10 of September where he received an injection to his sciatic nerve. For the last week his neurological symptoms seemed to have gotten worse to the point that he can not even move his left arm because of shoulder pain. His right hand is swollen and extremely painful. 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 He also has increased swelling to bilateral legs. No fevers or chills no associated GI symptoms no chest pain or shortness of breath. REVIEW OF SYSTEMS CONSTITUTIONAL: Denies fevers, chills, or night sweats. No unintentional weight loss reported. NEUROLOGICAL: Denies headache, amaurosis fugax, motor weakness, sensory deficit, vertigo/spinning sensation, gait abnormalities, or tremors. ENT: No hearing loss, otalgia, otorrhea, rhinitis, rhinorrhea, hoarseness, or sore throat. CARDIOVASCULAR: Denies any exertional angina, dyspnea on exertion, orthopnea, paroxysmal nocturnal dyspnea, palpitations, life-threatening arrhythmias, claudication. PULMONARY: Denies any shortness of breath, cough, phlegm/sputum, hemoptysis, pleuritic chest pain. SLEEP: Denies morning headaches, daytime somnolence or napping. Denies difficulty falling asleep, staying asleep, waking from sleep. Denies knowledge of snoring. GASTROINTESTINAL: Denies any type of dysphagia to either liquids or solids. Denies nausea, vomiting, pyrosis, early satiety, abdominal pain, diarrhea, constipation, or changes in stool consistency or caliber. Denies coffee-ground emesis, hematemesis, hematochezia, or melanotic stools. GENITOURINARY: Denies frequency, urgency, nocturia, hematuria or incontinence (Storage/Irritative symptoms.) Low urinary stream, straining to void, urinary intermittency or hesitancy, splitting of the voiding stream, terminal dribbling. ENDOCRINOLOGIC: Denies polyuria, polydipsia, polyphagia or heat/cold intolerances. HEMATOLOGIC: Denies thrombophilia/previous clots, or coagulopathy/bleeding disorders. ONCOLOGIC: Denies personal history of malignancy. DERMATOLOGIC: Denies rashes or pruritus. PSYCHIATRIC: Denies any suicidal or homicidal ideation. Denies hallucinations. PAST MEDICAL HISTORY: [ ] PAST SURGICAL HISTORY: [ ] PAST SOCIAL HISTORY: [ ] FAMILY HISTORY: [ ] Coded Allergies: No Known Drug Allergies (Unverified Allergy, Unknown, 10/29/20) PHYSICAL EXAM GENERAL APPEARANCE: The patient is awake, alert, and oriented, in no acute cardiopulmonary distress. NEUROLOGICAL: Cranial nerves II-XII grossly intact. Motor is 5/5 in bilateral upper and lower extremities proximal to distal. No sensory deficits. HEENT: Face is symmetric. Pupils are equal and reactive. Extraocular movements are intact. NECK: Supple. No JVD. No thyromegaly. No submental, submandibular, pre- /postauricular, occipital or supraclavicular lymphadenopathy. CHEST: Normal chest expansion. No Telemetry. LUNGS: Absence of any rales, rhonchi or any wheezing. CARDIOVASCULAR: Regular. S1 and S2 normal. No appreciable rubs, murmurs or gallops. ABDOMEN: Soft, nontender, and nondistended. There is no rebound, voluntary guarding, or rigidity. : Deferred. No Quan. EXTREMITIES: Non-edematous and not cyanotic. No clubbing. Good capillary refill. SKIN: No skin breakdown. Vital Sign (Last 24 Hours) 09/24/24 23:19 Temp 98.4 Pulse 76 Resp 18 B/P (MAP) 108/56 Pulse Ox 98 O2 Delivery Room Air* O2 Flow Rate 0 FiO2 21 LABS: Laboratory: Test 09/25/24 02:04 09/24/24 22:18 09/24/24 20:47 Range/Units White Blood Count 6.4 4.8-10.8 K/uL Red Blood Count 3.13 L 4.50-6.20 MIL/uL Hemoglobin 5.8 *L 14.0-18.0 g/dL Hematocrit 21.1 L 42-54 % Mean Corpuscular Volume 67.4 L 79-99 fL Mean Corpuscular Hemoglobin 18.5 L 27.0-33.0 pg Mean Corpuscular Hemoglobin Concent 27.5 L 32.0-36.0 g/dL Red Cell Distribution Width 18.6 H 11.0-15.5 % Platelet Count 48 L 130-400 K/uL Mean Platelet Volume 9.3 7.5-10.5 fL Immature Granulocyte % (Auto) 1.7 H 0-1 % Neutrophils (%) (Auto) 83.1 H 40.0-77.0 % Lymphocytes (%) (Auto) 9.0 L 21.0-51.0 % Monocytes (%) (Auto) 6.0 3.0-13.0 % Eosinophils (%) (Auto) 0.2 0.0-8.0 % Basophils (%) (Auto) 0.0 0.0-5.0 % Neutrophils # (Auto) 5.3 1.8-7.7 K/uL Lymphocytes # (Auto) 0.6 L 1.0-4.8 K/uL Monocytes # (Auto) 0.4 0.1-1.0 K/uL Eosinophils # (Auto) 0.01 0.00-0.70 K/uL Basophils # (Auto) 0.00 0.00-0.20 K/uL Absolute Immature Granulocyte (auto 0.11 0-1 K/uL Nucleated Red Blood Cells 0.3 H 0.0-0.19 % White Cell Morphology Comment See comments Platelet Morphology Comment MARKED DECREASE Red Blood Cell Morphology See comments Lactic Acid Level 1.7 0.8-2.5 mmol/L Total Creatine Kinase 47 # 21-232 U/L Sodium Level 136 136-145 mmol/L Potassium Level 4.8 3.5-5.1 mmol/L Chloride Level 103 101-111 mmol/L Carbon Dioxide Level 27 21-32 mmol/L Blood Urea Nitrogen 32 H 7-18 mg/dL Creatinine 1.0 0.5-1.3 mg/dL Glomerular Filtration Rate Calc 92 >90 mL/min Random Glucose 271 H 70-105 mg/dL Total Calcium 7.5 L 8.5-10.1 mg/dL Total Bilirubin 1.4 H 0.2-1.0 mg/dL Aspartate Amino Transf (AST/SGOT) 22 10-37 U/L Alanine Aminotransferase (ALT/SGPT) 33 12-78 U/L Alkaline Phosphatase 88 50-136 U/L Troponin I High Sensitivity < 4 L 4-75 ng/L B-Type Natriuretic Peptide 56 0-100 pg/mL Total Protein 5.9 L 6.0-8.3 g/dL Albumin 2.1 L 3.5-5.0 g/dL Procalcitonin 0.50 0.05-0.5 ng/mL DIAGNOSTICS / RADIOLOGY: [ ] ASSESSMENT: [ ] PLAN: [ ] RITU MALDONADO SEDIMENT REMEDIATION CONSULTANT September 25, 2024 04:55
--- NOTE | 2024-09-25 04:58 | NUR ---
PER LAB UNIT IS STILL NOT AVAILABLE
[2024-09-25 05:05] LABS: INR 1.46 (0.85-1.15); PROTHROMBIN TIME 14.9 SEC (9.6-11.6)
--- NOTE | 2024-09-25 05:10 | NUR ---
REPORT GIVEN TO RIVAS GALVAN
[2024-09-25 05:11] LABS: HEMOGLOBIN A1C 5.2 % (4.0-6.0)
--- NOTE | 2024-09-25 05:11 | NUR ---
CIELO RAMIREZ RN PERITONEAL DIALYSIS WITH ADMITTING TEAM AT [facility] TO EVALUATE PATIENT
[2024-09-25 05:18] LABS: THYROID STIMULATING HORMONE 0.43 uIU/mL (0.36-3.74)
[2024-09-25] MEDS: INSULIN humuLIN R 100 UNIT/ML 3ML SQ SCH (05:53)
--- NOTE | 2024-09-25 06:24 | NUR ---
dank davey in a pts rm. left message to call back to ext [phone] pe exam
[2024-09-25] MEDS ORDERED: octREOtide aceTATe 1,250 MCG in 0.9% NACL 250ML 250 ML IV SCH (07:00)
[2024-09-25 07:38] VITALS: BP 133/65; PULSE 67; RESP 18; TEMP 99.6
[2024-09-25 08:00] VITALS: O2SAT 100
--- NOTE | 2024-09-25 08:28 | HMCIMG ---
Exam Type: US VENOUS DOPPLER UNILATERAL Clinical Information: right hand swelling Comparison: None Findings: The examination shows normal deep venous system. There is normal compressibility at all levels. There is no intraluminal clot. There is no occlusion. Adequate response is obtained on augmentation. Impression: No evidence of DVT.
--- NOTE | 2024-09-25 08:48 | HMCIMG ---
Exam Type: HAND 3+VWS RT Clinical Information: SWELLING Comparison: None Findings and impression: Fracture distal tip distal phalanx of the fourth digit. It is unclear whether this represents an acute injury. No other abnormalities are seen.
[2024-09-25] MEDS: octREOtide aceTATe 100 MCG/ML AMP IV ONE (09:00)
--- NOTE | 2024-09-25 09:26 | NUR ---
CTA PE PENDING MIDLINE MIHIR KENT
--- NOTE | 2024-09-25 09:36 | HMCIMG ---
Exam Type: US VENOUS DOPPLER BILATERAL Clinical Information: elevated ddimer, bilateral LE edema Comparison: None Findings: The examination shows normal deep venous system. There is normal compressibility at all levels. There is no intraluminal clot. There is no occlusion. Adequate response is obtained on augmentation. Impression: No evidence of DVT.
--- NOTE | 2024-09-25 09:40 | HMCIMG ---
Exam Type: SHOULDER COMP 2+VWS LT Clinical Information: pain immobility Comparison: None FINDINGS: The examination is unremarkable. Specifically, the glenohumeral and acromioclavicular joints are preserved. Visualized portions of the humerus, the scapula, and the clavicle as well as the upper ribcage are unremarkable. No pulmonary pathology is noted in the visualized portions of the upper lobe. The soft tissues are preserved. There are no other gross abnormalities. IMPRESSION: NORMAL EXAMINATION.
[2024-09-25] MEDS: morPHINE 2 MG SYG IM ONE (11:05)
[2024-09-25 11:47] LABS: HEMATOCRIT 24.3 % (42-54)
[2024-09-25 11:59] LABS: HIV 1&2 ANTIBODY Non-Reactive (Negative); HIV-1 p24 Antigen Non-Reactive (Negative)
[2024-09-25 12:16] VITALS: BP 141/71; PULSE 81; RESP 18; TEMP 99.4
[2024-09-25] MEDS: LIDOCAINE 4% ADH..PATCH TP SCH (12:38)
[2024-09-25] MEDS: PANTOPrazole 40 MG/VIAL IVP SCH (12:38)
[2024-09-25 12:44] LABS: APPEARANCE,URINE CLEAR (CLEAR); BILIRUBIN,URINE NEGATIVE (NEGATIVE); COLOR,URINE YELLOW (YELLOW); GLUCOSE, URINE (UA) NEGATIVE (NEGATIVE); KETONES,URINE NEGATIVE (NEGATIVE); LEUKOCYTE ESTERASE ,URINE NEGATIVE Leu/uL (NEGATIVE); NITRATE,URINE NEGATIVE (NEGATIVE); OCCULT BLOOD,URINE SMALL (NEGATIVE); PROTEIN,URINE 10 mg/dL (NEGATIVE); UROBILINOGEN,URINE 12 mg/dL (0.2-1.0)
[2024-09-25 12:48] LABS: ADD UA MICROSCOPIC YES
[2024-09-25 12:53] LABS: AMPHET/METH SCREEN,URINE NEGATIVE (NEGATIVE); BARBITURATE SCREEN, URINE NEGATIVE (NEGATIVE); BENZODIAZEPINES SCREEN,URINE NEGATIVE (NEGATIVE); CANNABINOID SCREEN,URINE NEGATIVE (NEGATIVE); COCAINE SCREEN,URINE NEGATIVE (NEGATIVE); OPIATE SCREEN,URINE NEGATIVE (NEGATIVE); PHENCYCLIDINE SCREEN,URINE NEGATIVE (NEGATIVE)
[2024-09-25 13:04] LABS: MUCUS,URINE RARE LPF (None Seen); SQUAMOUS EPITHELIAL CELL,UR RARE /HPF (0-2)
--- NOTE | 2024-09-25 14:08 | NUR ---
ENTERED PATIENT'S ROOM WITH DR. RANDY DUNCAN FOR CONSULT VISIT. UPON ENTERING ROOM, NOTED THAT PATIENT WAS HAVING VISIBLE CHILLS. PATIENT IS CURRENTLY RECEIVING ONE UNIT OF PRBC'S. ASKED PATIENT WHEN CHILLS BEGAN. PER PATIENT, "THE CHILLS STARTED AROUND 30 MINUTES AGO". WHEN ASKED ABOUT BACK PAIN, PATIENT STATED, "MY BACK HURTS. MY ABDOMEN HURTS TOO". DR. DUNCAN RECOMMENDED THAT THE BLOOD TRANSFUSION BE STOPPED AND THAT PRIMARY TEAM BE NOTIFIED. NOTIFIED JED DRAKE NP WHO CAME TO SEE THE PATIENT. PER JED DRAKE NP, BLOOD TRANSFUSION IS TO BE STOPPED AND BLOOD TRANSFUSION REACTION PROTOCOL IS TO BE ACTIVATED. BLOOD TRANSFUSION STOPPED. PATIENT'S CHILLS STOPPED SHORTLY AFTER. REMAINING BLOOD IN THE BLOOD BAG WAS RETURNED TO LAB PER POLICY. PER LAB, URINE CULTURE IS TO BE PROVIDED PART OF THE TRANSFUSION PROTOCOL. PENDING PATIENT TO PRODUCE URINE SAMPLE.
[2024-09-25 16:00] VITALS: BP 120/60; PULSE 84; RESP 18; TEMP 99.6
--- NOTE | 2024-09-25 17:00 | NUR ---
Discharge Planning: Pt. states he lives with his spouse Rodney Madrigal. Contact number is . PCP is Dr. Dixon Chiang, and preferred pharmacy is [email or web address]. Pt. is employed full-time. No home health, provider services, or DME. DCP is for home. No d/c needs at present time. Addendum: 09/25/24 at 1702 by SANDIE CORRALES RN CM Amended: Links added.
--- NOTE | 2024-09-25 18:16 | NUR ---
SPOKE WITH LAB REGARDING PLATELETS FOR PATIENT. LAB GUM SPRAYER ADVISED THAT PLATELETS BE HELD UNTIL TOMORROW DUE TO THE BLOOD TRANSFUSION REACTION. PATHOLOGY HAS YET TO APPROVE THE USE OF FURTHER BLOOD PRODUCTS FOR PATIENT. NOTIFIED JED DRAKE NP.
[2024-09-25 20:00] VITALS: BP 115/60; PULSE 74; RESP 20; TEMP 98.9
[2024-09-25 23:40] VITALS: BP 119/62; PULSE 68; RESP 20; TEMP 98.9
[2024-09-26] VITALS (23 sets, daily range): BP systolic 103–137; BP diastolic 61–81; PULSE 61–75; RESP 16–20; TEMP 97.5–98.7; O2SAT 98
[2024-09-26 00:59] LABS: HEMATOCRIT 25.4 % (42-54)
[2024-09-26 05:34] LABS: HEMATOCRIT 25.7 % (42-54); MEAN CORPUSCULAR HGB CONC 28.8 g/dL (32.0-36.0); MEAN CORPUSCULAR VOLUME 69.5 fL (79-99); RED BLOOD CELL COUNT(AUTO) 3.7 MIL/uL (4.50-6.20); RED CELL DISTRIBUTION WIDTH 19.7 % (11.0-15.5); WHITE BLOOD COUNT (AUTO) 7.6 K/uL (4.8-10.8)
[2024-09-26 05:47] LABS: ALBUMIN 1.8 g/dL (3.5-5.0); BILIRUBIN,TOTAL 2.1 mg/dL (0.2-1.0); CREATININE 0.6 mg/dL (0.5-1.3); MAGNESIUM 2.1 mg/dL (1.80-2.40); POTASSIUM 4.7 mmol/L (3.5-5.1); TOTAL PROTEIN, SERUM 5.8 g/dL (6.0-8.3)
--- NOTE | 2024-09-26 06:41 | NUR ---
per MIHIR Martin and Gallito pt has midline and is power injectable and is NPO. Consent is there from CT in the ED
--- NOTE | 2024-09-26 07:47 | CONS ---
GASTROENTEROLOGY CONSULTATION REFERRING PHYSICIAN: Satya pSringer MD REASON FOR CONSULTATION: Acute anemia, hepatic cirrhosis and abnormal abdominal imaging with esophageal varices in a patient with history of PUD and thrombocytopenia/coagulopathy. HISTORY OF PRESENT ILLNESS: The patient is a 49-year-old male with history of PUD and hepatic cirrhosis with prior esophageal varices, who was admitted with lower extremity swelling and upper extremity pain and who also has acute anemia on labs, abnormal CT scan which showed hepatic cirrhosis and abdominal varices, for which GI evaluation and management are sought. According to the patient, he has no abdominal pain, nausea, vomiting, melena, hematochezia, or significant dysphagia, but he has been having anorexia and also episodes of hiccups and has lost 60 to 70 pounds unintentionally over the last 1 year. The patient denies history of PUD, but medical records indicate he has history of PUD in the past. He denies NSAID use. There is no family history of colon cancer, stomach cancer, esophageal disorders, gallbladder disease, pancreatic disease or liver disease. ALLERGIES: No known drug allergies. PAST MEDICAL AND PAST SURGICAL HISTORY: See above. Also history of possible PUD and esophageal varices. There is no history of diabetes, coronary artery disease, myocardial infarction, cerebrovascular accident, seizure disorder, or asthma. He has undergone EGD in the past. MEDICATIONS: Morphine, IV octreotide, pantoprazole, insulin, hydralazine, ondansetron, temazepam, acetaminophen, hydromorphone. SOCIAL HISTORY: The patient reports past history of alcohol use and abuse. Reports he quit this habit over 8 years ago. Denies illicit drug use. Denies also any history of tobacco use. FAMILY HISTORY: Significant for diabetes and hypertension in his father. There is no family history of colon cancer, stomach cancer, esophageal disorders, gallbladder, pancreatic or liver disease to his knowledge. There is no family history of CAD, CO, or IBD. REVIEW OF SYSTEMS: CONSTITUTIONAL: The patient reports leg swelling has improved since hospitalization. Upper extremity abdominal pain has also improved. He has no gross GI bleed and denies abdominal pain. DERMATOLOGY: Denies any rash. He has easy bruising though. Denies any excessive dry skin. OPHTHALMOLOGY: No recent vision change, eye pain, periorbital swelling, redness or drainage. ENT: He has no ear pain, tinnitus, hearing loss, nasal congestion, rhinorrhea, sore throat or voice changes. RESPIRATORY: Denies wheeze, rhinorrhea, epistaxis, chest congestion or cough. CARDIOVASCULAR: No chest pain or palpitations, but he has been having leg swelling. GENITOURINARY: No dysuria, hematuria, urgency or frequency. GASTROINTESTINAL: Denies abdominal pain, nausea, vomiting, melena or hematochezia. Reports hiccups. He also has anorexia. MUSCULOSKELETAL: He has no joint pain. He has upper extremity pain and lower extremity swelling, which has improved since hospitalization. NEUROLOGY: Denies any tingling, numbness, vision changes or hearing loss. Reports upper extremity pain. ENDOCRINOLOGY: No history of diabetes, thyroid disease or hyperlipidemia. HEMATOLOGY/LYMPHATICS: Denies any inherited bleeding disorder, easy bruising, swelling, tender or palpable lymph nodes. PHYSICAL EXAMINATION: GENERAL: The patient is a 49-year-old male who appears his stated age, seen resting in bed, in no acute respiratory distress. VITAL SIGNS: Blood pressure 120/60, heart rate 84, respirations 18, temperature 99.7 degrees Fahrenheit. SKIN: Warm, dry. No active dermatosis. HEENT: The patient's head is normocephalic, atraumatic. Pupils are reactive. Sclerae anicteric. Oral mucosa was moist. Leukoplakia noted on tongue and cheek. Nasal mucosa showed no epistaxis, septal deviation or perforation. NECK: No mass or jugular venous distention. No lymphadenopathy, no thyromegaly. LUNGS: Clear to auscultation bilaterally. HEART: S1, S2. No obvious murmurs, rubs, gallops auscultated. ABDOMEN: Symmetric, soft with active bowel sounds. No hepatomegaly or masses. Marked tenderness with guarding noted in the left upper abdominal quadrant. Mild tenderness in the epigastrium. No rebound tenderness noted. EXTREMITIES: No cyanosis, clubbing or edema. RECTAL: Deferred. LABORATORY DATA: WBC 6.4, hemoglobin 5.8, hematocrit 21.1, MCV 67.4, platelet count of 48. Later, hemoglobin 6.9, hematocrit 24.3 after 1 unit PRBC transfusion. The patient is status post another unit PRBC and labs are pending. PT 14.9, INR 1.46. D-dimer 1143. Fibrinogen 266. Urine tox screen shows no opiates, barbiturate, phencyclidine, amphetamine, benzodiazepine, cocaine or marijuana. UA showed clear yellow urine. PH of 7, specific gravity 1.024, protein of 10, glucose ketones negative, small occult blood noted, nitrite and bilirubin negative. Urobilinogen 12. Leukocyte esterase negative. WBC 2 to 5, RBC 2 to 5 and rare squamous epithelial cell and urine bacteria was none. Serology done for HIV 1 and HIV 2 were nonreactive and p24 antigen was also nonreactive. DIAGNOSTIC DATA: CT scan of abdomen and pelvis done one day ago showed cirrhotic liver with enlarged spleen and abdominal varices and small ascites. Chest x-ray done one day ago showed mild pulmonary vascular congestion and interstitial infiltrates. Venous Doppler studies of right hand shows swelling was negative. Venous Doppler study of bilateral lower extremities was also negative with no evidence of DVT. Shoulder x-ray done one day ago was normal. IMPRESSION: * Acute anemia, possibly from peptic ulcer disease versus portal hypertensive gastropathy blood loss and esophageal varices cannot be excluded. * Decompensated hepatic cirrhosis with ascites and esophageal varices. * Abnormal abdominal imaging as noted above. * Coagulopathy secondary to hepatic cirrhosis with thrombocytopenia and elevated INR. * Bilateral lower extremities edema likely related to cirrhosis with low albumin. PLAN: * Continue with IV Protonix therapy. * Keep on a clear liquid diet for now. * Continue to monitor CBC, transfuse PRBC as needed. Keep hemoglobin at least 7. * Recommend EGD for further evaluation and management. * Recommend colonoscopy also, especially with weight loss as above. Malignancy of lower GI tract cannot be excluded. * The above findings including lab and physical examination were discussed with the patient and significant other at bedside and all their questions were answered. They both agreed with management plan as discussed and as noted above. The nurse helped in translating from Telugu to Belgian during this assessment since the patient spoke only Telugu. Other information also obtained from medical nursing records and from family member at bedside. Dr. Springer, thank you for allowing me to participate in the care of this patient. TID: [id number] RECEIPT: [id number] cc: Satya Springer MD
--- NOTE | 2024-09-26 09:06 | PN ---
[facility] PROGRESS NOTE Date of Service: September 26, 2024 Time of Service: 09:05 SUBJECTIVE: [ ] Mr. Madrigal is a 49-year-old male with a history of esophageal viruses who presented to the ED with chief complaint of worsening bilateral lower extremity edema and right hand edema, and left arm pain/shoulder over the last week. The patient was here on the 10 of September where he received an injection to his sciatic nerve. The patient reported that his is right hand is swollen and extremely painful. 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 The patient denied any history of cirrhosis, fevers, chills, associated GI symptoms, chest pain or shortness of breath. 09/26/24 status post blood transfusion. Receive a total of1 unit and half of the 2nd unit patient developed chills. Latest Hgb: 7. 4 will hold platelet for now: 47 level. Patient is scheduled for EGD we will follow recommendations continue with PPIs. 1600: s/p EGD: findings; nonbleeding gastric ulcer with a clean ulcer base Rufino class III , acute gastritis, portal hypertensive gastropathy, large greater 5 mm esophageal varices, esophagogastric landmarks normal duodenal bulb and 2nd portion of the duodenum, Dr. Vela's recommendations low-sodium diet Protonix 40 mg twice a day for eight weeks and give a beta-jose elias with dosage titrate by the heart rate return in clinic two weeks repeat upper GI EGD six months to evaluate the response to therapy. We will hold beta-blockers for now we will reassess he is currently running between 60s and 70s most likely a small dose of metoprolol upon discharge we will reassess tomorrow. Spoke to primary nurse we are going to repeat venous Doppler to right arm concerned with possible DVT if negative we will do a CT with IV contrast of right upper extremity nurse we will follow-up in reach out. REVIEW OF SYSTEMS 12-point ROS reviewed with the patient. Pertinent positives mentioned above. Otherwise negative, noncontributory or non-pertinent. PHYSICAL EXAM GENERAL APPEARANCE: The patient is awake, alert, and oriented, in no acute cardiopulmonary distress. NEUROLOGICAL: Cranial nerves II-XII grossly intact. Motor is 5/5 in bilateral upper and lower extremities proximal to distal. No sensory deficits. HEENT: Face is symmetric. Pupils are equal and reactive. Extraocular movements are intact. NECK: Supple. No JVD. No thyromegaly. No submental, submandibular, pre- /postauricular, occipital or supraclavicular lymphadenopathy. CHEST: Normal chest expansion. No Telemetry. LUNGS: Absence of any rales, rhonchi or any wheezing. CARDIOVASCULAR: Regular. S1 and S2 normal. No appreciable rubs, murmurs or gallops. ABDOMEN: Soft, nontender, and nondistended. There is no rebound, voluntary guarding, or rigidity. : Deferred. No Quan. EXTREMITIES: Non-edematous and not cyanotic. No clubbing. Good capillary refill. SKIN: No skin breakdown. Vital Signs (last 8hr) Date Time Temp Pulse Resp B/P (MAP) Pulse Ox O2 Delivery O2 Flow Rate FiO2 09/26/24 07:43 98.2 71 19 137/67 98 Room Air 09/26/24 03:22 98.8 71 20 128/68 99 Room Air LABS: Laboratory: Test 09/26/24 05:12 09/26/24 04:49 09/25/24 12:20 09/25/24 10:52 Range/Units Whole Blood Glucose 133 H 70-110 MG/DL White Blood Count 7.6 4.8-10.8 K/uL Red Blood Count 3.70 L 4.50-6.20 MIL/uL Hemoglobin 7.4 L 14.0-18.0 g/dL Hematocrit 25.7 L 42-54 % Mean Corpuscular Volume 69.5 L 79-99 fL Mean Corpuscular Hemoglobin 20.0 L 27.0-33.0 pg Mean Corpuscular Hemoglobin Concent 28.8 L 32.0-36.0 g/dL Red Cell Distribution Width 19.7 H 11.0-15.5 % Platelet Count 46 L 130-400 K/uL Mean Platelet Volume 10.1 7.5-10.5 fL Nucleated Red Blood Cells 0.0 0.0-0.19 % Sodium Level 136 136-145 mmol/L Potassium Level 4.7 3.5-5.1 mmol/L Chloride Level 103 101-111 mmol/L Carbon Dioxide Level 29 21-32 mmol/L Blood Urea Nitrogen 28 H 7-18 mg/dL Creatinine 0.6 0.5-1.3 mg/dL Glomerular Filtration Rate Calc 118 >90 mL/min Random Glucose 130 H 70-105 mg/dL Total Calcium 7.3 L 8.5-10.1 mg/dL Phosphorus Level 5.0 H 2.5-4.9 mg/dL Magnesium Level 2.10 1.80-2.40 mg/dL Total Bilirubin 2.1 H 0.2-1.0 mg/dL Aspartate Amino Transf (AST/SGOT) 19 10-37 U/L Alanine Aminotransferase (ALT/SGPT) 29 12-78 U/L Alkaline Phosphatase 74 50-136 U/L Total Protein 5.8 L 6.0-8.3 g/dL Albumin 1.8 L 3.5-5.0 g/dL Urine Color YELLOW YELLOW Urine Appearance CLEAR CLEAR Urine pH 7.0 5.0-8.0 Urine Specific [place] 1.024 1.001-1.031 Urine Protein 10 H NEGATIVE mg/dL Urine Glucose (UA) NEGATIVE NEGATIVE mg/dL Urine Ketones NEGATIVE NEGATIVE mg/dL Urine Occult Blood SMALL H NEGATIVE Urine Nitrate NEGATIVE NEGATIVE Urine Bilirubin NEGATIVE NEGATIVE mg/dL Urine Urobilinogen 12 H 0.2-1.0 mg/dL Urine Leukocyte Esterase NEGATIVE NEGATIVE Leanna/uL Urine RBC 2-5 H 0-1 /HPF Urine WBC 2-5 H 0-1 /HPF Urine Squamous Epithelial Cells RARE 0-2 /HPF Urine Bacteria None None Seen /HPF Urine Opiates Screen NEGATIVE NEGATIVE Urine Barbiturates Screen NEGATIVE NEGATIVE Urine Phencyclidine Screen NEGATIVE NEGATIVE Urine Amphetamines Screen NEGATIVE NEGATIVE Urine Benzodiazepines Screen NEGATIVE NEGATIVE Urine Cocaine Screen NEGATIVE NEGATIVE Urine Marijuana (THC) Screen NEGATIVE NEGATIVE HIV (1&2) Antibody Non-Reactive Negative HIV P24 Antigen, Qualitative Non-Reactive Negative Test 09/25/24 02:04 09/24/24 22:18 09/24/24 20:47 Range/Units Immature Granulocyte % (Auto) 1.7 H 0-1 % Neutrophils (%) (Auto) 83.1 H 40.0-77.0 % Lymphocytes (%) (Auto) 9.0 L 21.0-51.0 % Monocytes (%) (Auto) 6.0 3.0-13.0 % Eosinophils (%) (Auto) 0.2 0.0-8.0 % Basophils (%) (Auto) 0.0 0.0-5.0 % Neutrophils # (Auto) 5.3 1.8-7.7 K/uL Lymphocytes # (Auto) 0.6 L 1.0-4.8 K/uL Monocytes # (Auto) 0.4 0.1-1.0 K/uL Eosinophils # (Auto) 0.01 0.00-0.70 K/uL Basophils # (Auto) 0.00 0.00-0.20 K/uL Absolute Immature Granulocyte (auto 0.11 0-1 K/uL White Cell Morphology Comment See comments Platelet Morphology Comment MARKED DECREASE Red Blood Cell Morphology See comments Erythrocyte Sedimentation Rate 10 0-15 MM/HR Prothrombin Time 14.9 H 9.6-11.6 SEC Prothromb Time International Ratio 1.46 H 0.85-1.15 Fibrinogen 266 180-350 mg/dL D-Dimer Quantitative (PE/DVT) 1143 *H 0-500 ng/mL Hemoglobin A1c 5.2 4.0-6.0 % Estimated Average Glucose (eAG) 103 70-126 mg/dL Lactic Acid Level 1.7 0.8-2.5 mmol/L C-Reactive Protein, Quantitative 68.00 H 0.5-3.0 mg/L Thyroid Stimulating Hormone (TSH) 0.43 0.36-3.74 uIU/mL Total Creatine Kinase 47 # 21-232 U/L Troponin I High Sensitivity < 4 L 4-75 ng/L B-Type Natriuretic Peptide 56 0-100 pg/mL Procalcitonin 0.50 0.05-0.5 ng/mL Current Medications Medications (Trade) Dose Ordered Sig/Kali Route PRN Reason Start Time Stop Time Status Last Admin Dose Admin Acetaminophen (TYLenol 325MG TAB) 650 mg Q6H PRN PO FEVER/MILD PAIN LEVEL 1-3 09/25/24 04:30 10/25/24 04:29 Acetaminophen (TYLenol 650MG SUPPOSITORY) 650 mg Q6H PRN RC FEVER / MILD PAIN 1-3 IF NPO 09/25/24 04:30 10/25/24 04:29 Hydralazine HCl (APRESOLine 20MG INJ) 10 mg Q2H PRN IV SBP GREATER THAN 160 09/25/24 04:30 10/25/24 04:29 Insulin Human Regular (humuLIN R 100 UNIT/ML 3ML) INSULIN SLIDING SCAL... Q6H6 SQ 09/25/24 06:00 10/25/24 05:59 Lidocaine (Lidocaine Patch 4%) 1 each DAILY TP 09/25/24 09:30 10/25/24 09:29 09/26/24 08:46 1 EACH Octreotide Acetate 1250 mcg/ Sodium Chloride 250 ml @ 0 mls/hr PROTOCOL IV 09/25/24 07:00 10/25/24 06:59 Ondansetron HCl (zoFRAN 4MG INJ) 4 mg Q6H PRN IVP NAUSEA/VOMITING 09/25/24 04:30 10/25/24 04:29 Pantoprazole Sodium (PROTonix 40MG INJ) 40 mg BID IVP 09/25/24 06:45 10/25/24 06:44 09/26/24 08:46 40 MG Temazepam (restORIL 15 MG CAP) 15 mg HS PRN PO INSOMNIA/SLEEP 09/25/24 04:30 10/25/24 04:29 DIAGNOSTICS / RADIOLOGY: [ ] ASSESSMENT: Severe anemia, POA requiring blood transfusion POA suspecting transfusion reaction on this admission POA Cirrhotic liver with enlarged spleen, per CT 09/24/2024 Abdominal varices, per CT 09/24/2024 Small ascites, per CT 09/24/2024 Mild pulmonary vascular congestion or interstitial infiltrates, per chest x-ray on 09/24/2024 Thrombocytopenia, POA Bilateral lower extremity edema unilateral swelling to right forearm /hand POA Elevated D-dimer rule out PE/DVT Hyperglycemia Protein calorie malnutrition/hypoalbuminemia Obese, BMI 34.4 Hx of upper GI bleed likely esophageal varices, possible ulcers-cause NSAIDs use [hx of Ardosons (Indomethacine) use] History of esophageal varus, EGD PLAN: Admit to medical floor with telemetry monitoring. s/p blood transfusion x1 unit and partial of 2nd unit. stop second unit develop chills. Transfusion reaction protocol con to monitor Hemoglobin every 6 hours and transfuse p.r.n. hemoglobin less than seven. Diet: NPO. instructional design consultant: GI: DR Vela Procedure EGC today cont with PPIs: Protonix 40 mg IV b.i.d.. Obtain CT PE protocol. pending Test: venous doppler negative for DVT: patient continue with swelling hand heavy sensation, unable to rehabilitation program coordinator with hands: repeat venous doppler today Glucometer checks q.6 hours with an 1/2 insulin sliding scale coverage per protocol p.r.n. Blood pressure checks every 4 hours and as needed. A.m. labs: CBC, CMP, Mag, in am Monitor renal and liver function. Monitor electrolytes and treat accordingly. GI and DVT prophylaxis: Protonix and SCDs. ATTESTATION BY PHYSICIAN I have seen and examined the patient. I reviewed the documentation, medical decision making, and treatment plan as noted by the mid-level provider above. I agree with the findings and plan of care. KUSH BLACK MD, ELIZABETH NP September 26, 2024 09:06
[2024-09-26 12:00] LABS: HEMATOCRIT 26.8 % (42-54)
--- NOTE | 2024-09-26 13:04 | NUR ---
PROCEDURE PATIENT OFF UNIT FOR EGD PROCEDURE.
[2024-09-26] MEDS ORDERED: proPOFol 10 MG/ML 20ML VIAL IV ONE (14:48)
[2024-09-26] MEDS ORDERED: LIDOCAINE PF 100MG/5ML (2%) SYRINGE 5ML ONE (14:49)
--- NOTE | 2024-09-26 17:19 | HMCIMG ---
ULTRASOUND VENOUS DOPPLER RIGHT UPPER EXTREMITY INDICATION: Swelling. TECHNIQUE: Routine grayscale and color and spectral Doppler ultrasound of the right upper extremity veins performed in real-time, and images subsequently made available for review. COMPARISON: None FINDINGS: IV catheter occupies the basilic vein. Normal compression, vascular antegrade flow, respiratory variation and spectral waveforms identified within the right internal jugular vein, subclavian vein, axillary vein, brachial vein, cephalic vein, and basilic vein. No evidence for an intraluminal thrombus. No soft tissue abnormalities demonstrated. IMPRESSION: No evidence for right upper extremity venous thrombosis.
[2024-09-26] MEDS: HYDROcodone/APAP 5/325 1 TAB TABLET PO ONE (17:43)
--- NOTE | 2024-09-26 23:10 | NUR ---
per MIHIR Martin pt to be scanned at 0600
[2024-09-27] VITALS (8 sets, daily range): BP systolic 128–151; BP diastolic 62–72; PULSE 64–81; RESP 16–20; TEMP 98–98.8; O2SAT 98–99
[2024-09-27 05:12] LABS: BASOPHILS # (AUTO) 0.01 K/uL (0.00-0.20); BASOPHILS % (AUTO) 0.1 % (0.0-5.0); EOSINOPHILS # (AUTO) 0.04 K/uL (0.00-0.70); EOSINOPHILS % (AUTO) 0.5 % (0.0-8.0); HEMATOCRIT 27.3 % (42-54); IMMATURE GRANULOCYTE ABSOLUTE 0.05 K/uL (0-1); LYMPHOCYTES # (AUTO) 0.9 K/uL (1.0-4.8); LYMPHOCYTES % (AUTO) 11.8 % (21.0-51.0); MEAN CORPUSCULAR HEMOGLOBIN 19.7 pg (27.0-33.0); MEAN CORPUSCULAR HGB CONC 27.8 g/dL (32.0-36.0); MEAN CORPUSCULAR VOLUME 70.9 fL (79-99); MONOCYTES # (AUTO) 0.7 K/uL (0.1-1.0); MONOCYTES % (AUTO) 9.4 % (3.0-13.0); NEUTROPHILS # (AUTO) 5.8 K/uL (1.8-7.7); NEUTROPHILS % (AUTO) 77.5 % (40.0-77.0); PLATELET COUNT (AUTO) 51 K/uL (130-400); RED BLOOD CELL COUNT(AUTO) 3.85 MIL/uL (4.50-6.20); RED CELL DISTRIBUTION WIDTH 20.5 % (11.0-15.5); WHITE BLOOD COUNT (AUTO) 7.5 K/uL (4.8-10.8)
[2024-09-27 05:21] LABS: ALBUMIN 1.8 g/dL (3.5-5.0); BILIRUBIN,TOTAL 1.5 mg/dL (0.2-1.0); CREATININE 0.7 mg/dL (0.5-1.3); MAGNESIUM 2.2 mg/dL (1.80-2.40); POTASSIUM 4.8 mmol/L (3.5-5.1)
--- NOTE | 2024-09-27 05:57 | NUR ---
Called floor,RN busy and will call back
[2024-09-27] MEDS: acetaMINOPHEN 325 MG TAB PO PRN (09:03)
[2024-09-27] MEDS: PROPRANOLOL HCL 10 MG TAB PO SCH (09:03)
[2024-09-27] MEDS: PANTOPrazole 40 MG TAB DR PO SCH (09:03)
[2024-09-27] MEDS ORDERED: IOHEXOL-350 75 ML VIAL IV ONE (09:32)
--- NOTE | 2024-09-27 10:43 | HMCIMG ---
CT angiogram chest CLINICAL INDICATION: RULE OUT PE, ELEVATED DDIMER COMPARISON: None. CT Dose Index (CTDI): 113.50 mGy Dose Length Product (DLP): 1408.10 total mGy PROTOCOL: Contrast: 100 cc of Isovue-370, injected IV, no complications Examination is done at 2.5 millimeter volumetric acquisition after contrast administration. Photography is done at 5 millimeter thick intervals for the thorax. FINDINGS: There is no evidence of pulmonary embolism. The airway is intact. The trachea and major bronchi are unremarkable. No pulmonary infiltrates or mass lesions are seen. Small bilateral pleural effusions. The exam of the ember and mediastinum is unremarkable. No evidence of hilar enlargement is seen. The aorta shows no aneurysmal dilatation or significant atheromatous calcification. There is no thoracic aortic dissection. No significant brachiocephalic vascular abnormalities are seen. The heart is unremarkable. It is not enlarged. No significant coronary arterial calcifications are seen. There is no pericardial effusion. The rib cage appears unremarkable. The soft tissues of the chest wall are unremarkable. The dorsal spine shows no significant abnormalities. Upper abdomen demonstrates splenomegaly, coarse surface of the liver, hypertrophy of the liver caudate lobe and ascites as well as splenic hilar varices and these findings may indicate cirrhosis. Please correlate. IMPRESSION: No evidence of pulmonary embolism. Bilateral pleural effusions. Possible cirrhosis. This study was performed using dose reduction techniques to include automated exposure control and/or adjustment of the mA and/or kV according to patient size.
--- NOTE | 2024-09-27 10:45 | HMCIMG ---
Exam Type: CT UPPER EXT W/CONTRAST Clinical Information: RIGHT ARM SWELLING Comparison: None Findings: The bone examination is unremarkable. No fractures or dislocations are seen. No radiopaque foreign bodies are noted. Soft tissues are preserved. Arteriogram demonstrates normal arterial vascularity of the upper extremity on the right side. IMPRESSION: Normal examination.
--- NOTE | 2024-09-27 11:38 | PN ---
[facility] PROGRESS NOTE Date of Service: September 27, 2024 Time of Service: 11:29 SUBJECTIVE: [ ] Mr. Madrigal is a 49-year-old male with a history of esophageal viruses who presented to the ED with chief complaint of worsening bilateral lower extremity edema and right hand edema, and left arm pain/shoulder over the last week. The patient was here on the 10 of September where he received an injection to his sciatic nerve. The patient reported that his is right hand is swollen and extremely painful. 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 The patient denied any history of cirrhosis, fevers, chills, associated GI symptoms, chest pain or shortness of breath. 09/26/24 status post blood transfusion. Receive a total of1 unit and half of the 2nd unit patient developed chills. Latest Hgb: 7. 4 will hold platelet for now: 47 level. Patient is scheduled for EGD we will follow recommendations continue with PPIs. 1600: s/p EGD: findings; nonbleeding gastric ulcer with a clean ulcer base Rufino class III , acute gastritis, portal hypertensive gastropathy, large greater 5 mm esophageal varices, esophagogastric landmarks normal duodenal bulb and 2nd portion of the duodenum, Dr. Vela's recommendations low-sodium diet Protonix 40 mg twice a day for eight weeks and give a beta-jose elias with dosage titrate by the heart rate return in clinic two weeks repeat upper GI EGD six months to evaluate the response to therapy. We will hold beta-blockers for now we will reassess he is currently running between 60s and 70s most likely a small dose of metoprolol upon discharge we will reassess tomorrow. Spoke to primary nurse we are going to repeat venous Doppler to right arm concerned with possible DVT if negative we will do a CT with IV contrast of right upper extremity nurse we will follow-up in reach out. 09/27/24 patient is lying in bed patient reports no chest pain shortness a breath. Patient remains anemic latest hemoglobin 7.6 hematocrit 27.3. Reports no active bleeding. Patient remains with good heart rate control given to portal hypertension. We continue to hold off on beta-blockers as recommended by GI. We will follow-up CT of left upper arm patient's left arm continues to be swollen and heavy sensation. [address] negative for DVT were occlusion. We will start small dose of Lasix advised patient to keep left arm elevated at all times and to move fingers we will get Physical therapy for range of motion. REVIEW OF SYSTEMS 12-point ROS reviewed with the patient. Pertinent positives mentioned above. Otherwise negative, noncontributory or non-pertinent. PHYSICAL EXAM GENERAL APPEARANCE: The patient is awake, alert, and oriented, in no acute cardiopulmonary distress. NEUROLOGICAL: Cranial nerves II-XII grossly intact. Motor is 5/5 in bilateral upper and lower extremities proximal to distal. No sensory deficits. HEENT: Face is symmetric. Pupils are equal and reactive. Extraocular movements are intact. NECK: Supple. No JVD. No thyromegaly. No submental, submandibular, pre- /postauricular, occipital or supraclavicular lymphadenopathy. CHEST: Normal chest expansion. No Telemetry. LUNGS: Absence of any rales, rhonchi or any wheezing. CARDIOVASCULAR: Regular. S1 and S2 normal. No appreciable rubs, murmurs or gallops. ABDOMEN: Soft, nontender, and nondistended. There is no rebound, voluntary guarding, or rigidity. : Deferred. No Quan. EXTREMITIES: Non-edematous and not cyanotic. No clubbing. Good capillary refill. SKIN: No skin breakdown. Vital Signs (last 8hr) Date Time Temp Pulse Resp B/P (MAP) Pulse Ox O2 Delivery O2 Flow Rate FiO2 09/27/24 08:00 98.4 69 18 134/62 99 Room Air 09/27/24 03:59 98.1 70 16 136/70 98 Room Air LABS: Laboratory: Test 09/27/24 05:24 09/27/24 04:35 09/26/24 04:49 09/25/24 12:20 Range/Units Whole Blood Glucose 104 70-110 MG/DL White Blood Count 7.5 4.8-10.8 K/uL Red Blood Count 3.85 L 4.50-6.20 MIL/uL Hemoglobin 7.6 L 14.0-18.0 g/dL Hematocrit 27.3 L 42-54 % Mean Corpuscular Volume 70.9 L 79-99 fL Mean Corpuscular Hemoglobin 19.7 L 27.0-33.0 pg Mean Corpuscular Hemoglobin Concent 27.8 L 32.0-36.0 g/dL Red Cell Distribution Width 20.5 H 11.0-15.5 % Platelet Count 51 L 130-400 K/uL Mean Platelet Volume 10.0 7.5-10.5 fL Immature Granulocyte % (Auto) 0.7 0-1 % Neutrophils (%) (Auto) 77.5 H 40.0-77.0 % Lymphocytes (%) (Auto) 11.8 L 21.0-51.0 % Monocytes (%) (Auto) 9.4 3.0-13.0 % Eosinophils (%) (Auto) 0.5 0.0-8.0 % Basophils (%) (Auto) 0.1 0.0-5.0 % Neutrophils # (Auto) 5.8 1.8-7.7 K/uL Lymphocytes # (Auto) 0.9 L 1.0-4.8 K/uL Monocytes # (Auto) 0.7 0.1-1.0 K/uL Eosinophils # (Auto) 0.04 0.00-0.70 K/uL Basophils # (Auto) 0.01 0.00-0.20 K/uL Absolute Immature Granulocyte (auto 0.05 0-1 K/uL Nucleated Red Blood Cells 0.0 0.0-0.19 % Sodium Level 134 L 136-145 mmol/L Potassium Level 4.8 3.5-5.1 mmol/L Chloride Level 104 101-111 mmol/L Carbon Dioxide Level 27 21-32 mmol/L Blood Urea Nitrogen 22 H 7-18 mg/dL Creatinine 0.7 0.5-1.3 mg/dL Glomerular Filtration Rate Calc 113 >90 mL/min Random Glucose 106 H 70-105 mg/dL Total Calcium 7.5 L 8.5-10.1 mg/dL Magnesium Level 2.20 1.80-2.40 mg/dL Total Bilirubin 1.5 #H 0.2-1.0 mg/dL Aspartate Amino Transf (AST/SGOT) 19 10-37 U/L Alanine Aminotransferase (ALT/SGPT) 26 12-78 U/L Alkaline Phosphatase 81 50-136 U/L Total Protein 6.0 6.0-8.3 g/dL Albumin 1.8 L 3.5-5.0 g/dL Phosphorus Level 5.0 H 2.5-4.9 mg/dL Urine Color YELLOW YELLOW Urine Appearance CLEAR CLEAR Urine pH 7.0 5.0-8.0 Urine Specific [place] 1.024 1.001-1.031 Urine Protein 10 H NEGATIVE mg/dL Urine Glucose (UA) NEGATIVE NEGATIVE mg/dL Urine Ketones NEGATIVE NEGATIVE mg/dL Urine Occult Blood SMALL H NEGATIVE Urine Nitrate NEGATIVE NEGATIVE Urine Bilirubin NEGATIVE NEGATIVE mg/dL Urine Urobilinogen 12 H 0.2-1.0 mg/dL Urine Leukocyte Esterase NEGATIVE NEGATIVE Leanna/uL Urine RBC 2-5 H 0-1 /HPF Urine WBC 2-5 H 0-1 /HPF Urine Squamous Epithelial Cells RARE 0-2 /HPF Urine Bacteria None None Seen /HPF Urine Opiates Screen NEGATIVE NEGATIVE Urine Barbiturates Screen NEGATIVE NEGATIVE Urine Phencyclidine Screen NEGATIVE NEGATIVE Urine Amphetamines Screen NEGATIVE NEGATIVE Urine Benzodiazepines Screen NEGATIVE NEGATIVE Urine Cocaine Screen NEGATIVE NEGATIVE Urine Marijuana (THC) Screen NEGATIVE NEGATIVE Current Medications Medications (Trade) Dose Ordered Sig/Kali Route PRN Reason Start Time Stop Time Status Last Admin Dose Admin Acetaminophen (TYLenol 325MG TAB) 650 mg Q6H PRN PO FEVER/MILD PAIN LEVEL 1-3 09/25/24 04:30 10/25/24 04:29 09/27/24 09:03 650 MG Acetaminophen (TYLenol 650MG SUPPOSITORY) 650 mg Q6H PRN RC FEVER / MILD PAIN 1-3 IF NPO 09/25/24 04:30 10/25/24 04:29 Hydralazine HCl (APRESOLine 20MG INJ) 10 mg Q2H PRN IV SBP GREATER THAN 160 09/25/24 04:30 10/25/24 04:29 Insulin Human Regular (humuLIN R 100 UNIT/ML 3ML) INSULIN SLIDING SCAL... Q6H6 SQ 09/25/24 06:00 10/25/24 05:59 09/26/24 18:58 2 UNIT Lidocaine (Lidocaine Patch 4%) 1 each DAILY TP 09/25/24 09:30 10/25/24 09:29 09/27/24 09:03 1 EACH Octreotide Acetate 1250 mcg/ Sodium Chloride 250 ml @ 0 mls/hr PROTOCOL IV 09/25/24 07:00 09/26/24 18:52 DC Ondansetron HCl (zoFRAN 4MG INJ) 4 mg Q6H PRN IVP NAUSEA/VOMITING 09/25/24 04:30 10/25/24 04:29 Pantoprazole Sodium (PROTonix 40MG INJ) 40 mg BID IVP 09/25/24 06:45 09/26/24 23:06 DC 09/26/24 20:18 40 MG Pantoprazole Sodium (PROTonix 40MG TAB) 40 mg BID PO 09/27/24 09:00 10/27/24 08:59 09/27/24 09:03 40 MG Propranolol HCl (Inderal) 10 mg BID PO 09/27/24 09:00 10/27/24 08:59 09/27/24 09:03 10 MG Temazepam (restORIL 15 MG CAP) 15 mg HS PRN PO INSOMNIA/SLEEP 09/25/24 04:30 10/25/24 04:29 DIAGNOSTICS / RADIOLOGY: [ ] ASSESSMENT: Severe anemia, POA requiring blood transfusion POA status post EGD: findings; nonbleeding gastric ulcer with a clean ulcer base Rufino class III , acute gastritis, portal hypertensive gastropathy, large greater 5 mm esophageal varices, esophagogastric landmarks normal duodenal bulb and 2nd portion of the duodenum, suspecting transfusion reaction on this admission POA Cirrhotic liver with enlarged spleen, per CT 09/24/2024 Abdominal varices, per CT 09/24/2024 Small ascites, per CT 09/24/2024 Mild pulmonary vascular congestion or interstitial infiltrates, per chest x-ray on 09/24/2024 Thrombocytopenia, POA Bilateral lower extremity edema unilateral swelling to right forearm /hand POA Elevated D-dimer rule out PE/DVT Hyperglycemia Protein calorie malnutrition/hypoalbuminemia Obese, BMI 34.4 Hx of upper GI bleed likely esophageal varices, possible ulcers-cause NSAIDs use [hx of Ardosons (Indomethacine) use] History of esophageal varus, EGD PLAN: Admit to medical floor with telemetry monitoring. Diet: Tolerating diet. technology methodology consultant: GI: DR Vela we will follow his recommendations prior to discharge. Procedure EGD note cont with PPIs: Protonix 40 mg IV b.i.d.. Recommendations for GI p.o. for eight weeks We continue to monitor H&H latest seven point one we will repeat H&H in anemia panel. CT of right arm ; noted no DVT: Small dose of Lasix we will be started advised patient to keep arm elevated at all times Repeat venous Doppler right arm was negative Glucometer checks q.6 hours with an 1/2 insulin sliding scale coverage per protocol p.r.n. Blood pressure checks every 4 hours and as needed. PT services to eval and treat: right arm passive ROM A.m. labs: CBC, CMP, Mag, in am Monitor renal and liver function. Monitor electrolytes and treat accordingly. GI and DVT prophylaxis: Protonix and SCDs. ATTESTATION BY PHYSICIAN I have seen and examined the patient. I reviewed the documentation, medical decision making, and treatment plan as noted by the mid-level provider above. I agree with the findings and plan of care. KUSH BLACK MD, ELIZABETH NP September 27, 2024 11:38
[2024-09-27 12:39] LABS: HEMATOCRIT 32.3 % (42-54)
[2024-09-27 12:53] LABS: % IRON SATURATION 11.7 % (30-44)
[2024-09-27] MEDS: LIDOCAINE 4% ADH..PATCH TP SCH (14:23)
[2024-09-27] MEDS: furoSEMIDE 20MG VIAL IV SCH (14:28)
[2024-09-27] MEDS: morPHINE 2 MG SYG IVP PRN (14:29)
[2024-09-27] MEDS: INSULIN humuLIN R 100 UNIT/ML 3ML SQ SCH (15:51)
[2024-09-27] MEDS: ondanSETRON 4MG INJ IVP PRN (23:25)
[2024-09-28] VITALS (8 sets, daily range): BP systolic 128–157; BP diastolic 66–81; PULSE 67–97; RESP 17–20; TEMP 98.4–99.7; O2SAT 99
[2024-09-28 06:07] LABS: BASOPHILS # (AUTO) 0.01 K/uL (0.00-0.20); BASOPHILS % (AUTO) 0.1 % (0.0-5.0); EOSINOPHILS # (AUTO) 0.04 K/uL (0.00-0.70); EOSINOPHILS % (AUTO) 0.4 % (0.0-8.0); HEMATOCRIT 28.7 % (42-54); IMMATURE GRANULOCYTE ABSOLUTE 0.06 K/uL (0-1); LYMPHOCYTES # (AUTO) 1.4 K/uL (1.0-4.8); LYMPHOCYTES % (AUTO) 14.7 % (21.0-51.0); MEAN CORPUSCULAR HGB CONC 28.6 g/dL (32.0-36.0); MONOCYTES # (AUTO) 0.9 K/uL (0.1-1.0); MONOCYTES % (AUTO) 9.7 % (3.0-13.0); NEUTROPHILS # (AUTO) 6.8 K/uL (1.8-7.7); NEUTROPHILS % (AUTO) 74.4 % (40.0-77.0); PLATELET COUNT (AUTO) 54 K/uL (130-400); RED CELL DISTRIBUTION WIDTH 20.8 % (11.0-15.5); WHITE BLOOD COUNT (AUTO) 9.2 K/uL (4.8-10.8)
[2024-09-28 06:40] LABS: ALBUMIN 1.8 g/dL (3.5-5.0); BILIRUBIN,TOTAL 1.4 mg/dL (0.2-1.0); CREATININE 0.5 mg/dL (0.5-1.3); MAGNESIUM 1.8 mg/dL (1.80-2.40); POTASSIUM 4.5 mmol/L (3.5-5.1); TOTAL PROTEIN, SERUM 6.2 g/dL (6.0-8.3)
--- NOTE | 2024-09-28 08:48 | PN ---
[facility] PROGRESS NOTE Date of Service: September 28, 2024 Time of Service: 08:41 SUBJECTIVE: [ ] Mr. Madrigal is a 49-year-old male with a history of esophageal viruses who presented to the ED with chief complaint of worsening bilateral lower extremity edema and right hand edema, and left arm pain/shoulder over the last week. The patient was here on the 10 of September where he received an injection to his sciatic nerve. The patient reported that his is right hand is swollen and extremely painful. 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 The patient denied any history of cirrhosis, fevers, chills, associated GI symptoms, chest pain or shortness of breath. 09/26/24 status post blood transfusion. Receive a total of1 unit and half of the 2nd unit patient developed chills. Latest Hgb: 7. 4 will hold platelet for now: 47 level. Patient is scheduled for EGD we will follow recommendations continue with PPIs. 1600: s/p EGD: findings; nonbleeding gastric ulcer with a clean ulcer base Rufino class III , acute gastritis, portal hypertensive gastropathy, large greater 5 mm esophageal varices, esophagogastric landmarks normal duodenal bulb and 2nd portion of the duodenum, Dr. Vela's recommendations low-sodium diet Protonix 40 mg twice a day for eight weeks and give a beta-jose elias with dosage titrate by the heart rate return in clinic two weeks repeat upper GI EGD six months to evaluate the response to therapy. We will hold beta-blockers for now we will reassess he is currently running between 60s and 70s most likely a small dose of metoprolol upon discharge we will reassess tomorrow. Spoke to primary nurse we are going to repeat venous Doppler to right arm concerned with possible DVT if negative we will do a CT with IV contrast of right upper extremity nurse we will follow-up in reach out. 09/27/24 patient is lying in bed patient reports no chest pain shortness a breath. Patient remains anemic latest hemoglobin 7.6 hematocrit 27.3. Reports no active bleeding. Patient remains with good heart rate control given to portal hypertension. We continue to hold off on beta-blockers as recommended by GI. We will follow-up CT of left upper arm patient's left arm continues to be swollen and heavy sensation. [address] negative for DVT were occlusion. We will start small dose of Lasix advised patient to keep left arm elevated at all times and to move fingers we will get Physical therapy for range of motion. 09/28/24 patient is lying in bed encouraged to ambulate. Patient's left arm some improving with swelling. Continues to elevate. Complained of right wrist pain we will get a x-ray three-view in three-view of right elbow. REVIEW OF SYSTEMS 12-point ROS reviewed with the patient. Pertinent positives mentioned above. Otherwise negative, noncontributory or non-pertinent. PHYSICAL EXAM GENERAL APPEARANCE: The patient is awake, alert, and oriented, in no acute cardiopulmonary distress. NEUROLOGICAL: Cranial nerves II-XII grossly intact. Motor is 5/5 in bilateral upper and lower extremities proximal to distal. No sensory deficits. HEENT: Face is symmetric. Pupils are equal and reactive. Extraocular movements are intact. NECK: Supple. No JVD. No thyromegaly. No submental, submandibular, pre- /postauricular, occipital or supraclavicular lymphadenopathy. CHEST: Normal chest expansion. No Telemetry. LUNGS: Absence of any rales, rhonchi or any wheezing. CARDIOVASCULAR: Regular. S1 and S2 normal. No appreciable rubs, murmurs or gallops. ABDOMEN: Soft, nontender, and nondistended. There is no rebound, voluntary guarding, or rigidity. : Deferred. No Quan. EXTREMITIES: Non-edematous and not cyanotic. No clubbing. Good capillary refill. SKIN: No skin breakdown. Vital Signs (last 8hr) Date Time Temp Pulse Resp B/P (MAP) Pulse Ox O2 Delivery O2 Flow Rate FiO2 09/28/24 08:00 98.4 73 18 133/67 99 Room Air 09/28/24 04:00 99.0 67 20 138/75 98 Room Air LABS: Laboratory: Test 09/28/24 05:35 09/28/24 05:18 09/27/24 12:09 Range/Units White Blood Count 9.2 4.8-10.8 K/uL Red Blood Count 4.10 L 4.50-6.20 MIL/uL Hemoglobin 8.2 L 14.0-18.0 g/dL Hematocrit 28.7 L 42-54 % Mean Corpuscular Volume 70.0 L 79-99 fL Mean Corpuscular Hemoglobin 20.0 L 27.0-33.0 pg Mean Corpuscular Hemoglobin Concent 28.6 L 32.0-36.0 g/dL Red Cell Distribution Width 20.8 H 11.0-15.5 % Platelet Count 54 L 130-400 K/uL Mean Platelet Volume 8.6 7.5-10.5 fL Immature Granulocyte % (Auto) 0.7 0-1 % Neutrophils (%) (Auto) 74.4 40.0-77.0 % Lymphocytes (%) (Auto) 14.7 L 21.0-51.0 % Monocytes (%) (Auto) 9.7 3.0-13.0 % Eosinophils (%) (Auto) 0.4 0.0-8.0 % Basophils (%) (Auto) 0.1 0.0-5.0 % Neutrophils # (Auto) 6.8 1.8-7.7 K/uL Lymphocytes # (Auto) 1.4 1.0-4.8 K/uL Monocytes # (Auto) 0.9 0.1-1.0 K/uL Eosinophils # (Auto) 0.04 0.00-0.70 K/uL Basophils # (Auto) 0.01 0.00-0.20 K/uL Absolute Immature Granulocyte (auto 0.06 0-1 K/uL Nucleated Red Blood Cells 0.0 0.0-0.19 % Sodium Level 134 L 136-145 mmol/L Potassium Level 4.5 3.5-5.1 mmol/L Chloride Level 103 101-111 mmol/L Carbon Dioxide Level 26 21-32 mmol/L Blood Urea Nitrogen 17 7-18 mg/dL Creatinine 0.5 0.5-1.3 mg/dL Glomerular Filtration Rate Calc 125 >90 mL/min Random Glucose 98 70-105 mg/dL Total Calcium 7.2 L 8.5-10.1 mg/dL Magnesium Level 1.80 1.80-2.40 mg/dL Total Bilirubin 1.4 H 0.2-1.0 mg/dL Aspartate Amino Transf (AST/SGOT) 20 10-37 U/L Alanine Aminotransferase (ALT/SGPT) 25 12-78 U/L Alkaline Phosphatase 86 50-136 U/L Total Protein 6.2 6.0-8.3 g/dL Albumin 1.8 L 3.5-5.0 g/dL Whole Blood Glucose 109 70-110 MG/DL Iron Level 24 #L 65-175 mcg/dL Total Iron Binding Capacity 205 L 250-450 mcg/dL Percent Iron Saturation 11.7 L 30-44 % Ferritin 61 30-400 ng/mL Folic Acid (LAB) 10.70 2-20 ng/mL Current Medications Medications (Trade) Dose Ordered Sig/Kali Route PRN Reason Start Time Stop Time Status Last Admin Dose Admin Acetaminophen (TYLenol 325MG TAB) 650 mg Q6H PRN PO FEVER/MILD PAIN LEVEL 1-3 09/25/24 04:30 10/25/24 04:29 09/27/24 09:03 650 MG Acetaminophen (TYLenol 650MG SUPPOSITORY) 650 mg Q6H PRN RC FEVER / MILD PAIN 1-3 IF NPO 09/25/24 04:30 10/25/24 04:29 Furosemide (LASix 20MG VIAL) 20 mg DAILY IV 09/27/24 14:30 10/27/24 14:29 09/27/24 14:28 20 MG Hydralazine HCl (APRESOLine 20MG INJ) 10 mg Q2H PRN IV SBP GREATER THAN 160 09/25/24 04:30 10/25/24 04:29 Insulin Human Regular (humuLIN R 100 UNIT/ML 3ML) INSULIN SLIDING SCAL... ACHS SQ 09/27/24 16:30 10/27/24 16:29 Insulin Human Regular (humuLIN R 100 UNIT/ML 3ML) INSULIN SLIDING SCAL... Q6H6 SQ 09/25/24 06:00 09/27/24 13:34 DC 09/26/24 18:58 2 UNIT Lidocaine (Lidocaine Patch 4%) 1 each DAILY TP 09/25/24 09:30 09/27/24 14:21 DC 09/27/24 09:03 1 EACH Lidocaine (Lidocaine Patch 4%) 1 each DAILY TP 09/27/24 14:30 10/27/24 14:29 Morphine Sulfate (morPHINE 2MG SYG) 1 mg Q4H4 PRN IVP MODERATE PAIN (4-6) 09/27/24 14:30 10/04/24 14:29 09/28/24 05:33 1 MG Octreotide Acetate 1250 mcg/ Sodium Chloride 250 ml @ 0 mls/hr PROTOCOL IV 09/25/24 07:00 09/26/24 18:52 DC Ondansetron HCl (zoFRAN 4MG INJ) 4 mg Q6H PRN IVP NAUSEA/VOMITING 09/25/24 04:30 10/25/24 04:29 09/28/24 05:32 4 MG Pantoprazole Sodium (PROTonix 40MG INJ) 40 mg BID IVP 09/25/24 06:45 09/26/24 23:06 DC 09/26/24 20:18 40 MG Pantoprazole Sodium (PROTonix 40MG TAB) 40 mg BID PO 09/27/24 09:00 10/27/24 08:59 09/27/24 20:28 40 MG Propranolol HCl (Inderal) 10 mg BID PO 09/27/24 09:00 10/27/24 08:59 09/27/24 20:28 10 MG Temazepam (restORIL 15 MG CAP) 15 mg HS PRN PO INSOMNIA/SLEEP 09/25/24 04:30 10/25/24 04:29 DIAGNOSTICS / RADIOLOGY: [ ] ASSESSMENT: Severe anemia, POA requiring blood transfusion POA status post EGD: findings; nonbleeding gastric ulcer with a clean ulcer base Rufino class III , acute gastritis, portal hypertensive gastropathy, large greater 5 mm esophageal varices, esophagogastric landmarks normal duodenal bulb and 2nd portion of the duodenum, suspecting transfusion reaction on this admission POA Cirrhotic liver with enlarged spleen, per CT 09/24/2024 Abdominal varices, per CT 09/24/2024 Small ascites, per CT 09/24/2024 Mild pulmonary vascular congestion or interstitial infiltrates, per chest x-ray on 09/24/2024 Thrombocytopenia, POA Bilateral lower extremity edema unilateral swelling to right forearm /hand POA Elevated D-dimer rule out PE/DVT Hyperglycemia Protein calorie malnutrition/hypoalbuminemia Obese, BMI 34.4 Hx of upper GI bleed likely esophageal varices, possible ulcers-cause NSAIDs use [hx of Ardosons (Indomethacine) use] History of esophageal varus, EGD UTI: gram negative Proteus Mirabilis not POA Iron Deficiency POA PLAN: Admit to medical floor with telemetry monitoring. Diet: Tolerating diet. sales support consultant: GI: DR Vela we will follow his recommendations prior to discharge. cont with PPIs: Protonix 40 mg IV b.i.d.. Recommendations for GI p.o. for eight weeks We continue to monitor H&H transfuse to keep HGB > 7.0 supplement: folic acid 1 mg po daily typing office worker consulted CT of right arm ; noted no DVT: Repeat venous Doppler right arm was negative currently on IV lasix for swelling: ARM Sling wrist pain: xray of Wrist and right elbow 3 view will follow Glucometer checks ac/hs monitoring SSRI 1/2 scale Blood pressure checks every 4 hours and as needed. PT services to eval and treat: right arm passive ROM A.m. labs: CBC, CMP, Mag, in am Monitor renal and liver function. Monitor electrolytes and treat accordingly. GI and DVT prophylaxis: Protonix and SCDs. ATTESTATION BY PHYSICIAN I have seen and examined the patient. I reviewed the documentation, medical decision making, and treatment plan as noted by the mid-level provider above. I agree with the findings and plan of care. KUSH BLACK MD, ELIZABETH NP September 28, 2024 08:48
[2024-09-28] MEDS ORDERED: 0.9%NACL 50ML IV SCH (09:00)
[2024-09-28] MEDS: ZOSYN 3.375GM +NS 50ML IVPB SCH (09:03)
[2024-09-28] MEDS: FOLic ACID 1 MG TABLET PO SCH (09:04)
--- NOTE | 2024-09-28 13:30 | NUR ---
Order received and patient seen. Spoke to Idania, patient's nurse, regarding elevating arm to reduce swelling. PT placed sleeve on patient's arm and hung it up to IV pole with string and hook. PT to reassess tomorrow as to effectiveness. Addendum: 09/28/24 at 1614 by CHAVEZ HORTON PT Amended: Links added.
[2024-09-28] MEDS: MAGNESIUM 2GM PREMIX 50ML 50 ML IV PRN (13:32)
--- NOTE | 2024-09-28 14:21 | HMCIMG ---
Exam Type: ELBOW COMP 3+VWS RT Clinical Information: swelling Comparison: None Findings: The bone examination is unremarkable. No fractures or dislocations are seen. No radiopaque foreign bodies are noted. Soft tissue swelling over the dorsum of the elbow may represent cellulitis or bursitis. Please correlate. IMPRESSION: Soft tissue swelling over the dorsum of the elbow may represent cellulitis or bursitis. Please correlate.
--- NOTE | 2024-09-28 14:27 | HMCIMG ---
Exam Type: WRIST COMP 3+VWS RT Clinical Information: swelling Comparison: None Findings: The bone examination is unremarkable. No fractures or dislocations are seen. No radiopaque foreign bodies are noted. Soft tissue swelling of the dorsum of the hand suggestive of cellulitis. IMPRESSION: Normal bony exam. Dorsum cellulitis.
--- NOTE | 2024-09-28 15:56 | NUR ---
SWELLING THIS CM SPOKE WITH RADIOLOGY REGARDING ALTERNATIVE TO VENOGRAM SINCE TEST IS NOT PERFORMED. A CT UE ANGIO W/ VENOUS PHASE WAS RECOMMENDED AN ALTERNATIVE. THIS CM NOTIFIED ATTENDING. ORDER RECEIVED AND ENTERED.
--- NOTE | 2024-09-28 16:34 | NUR ---
RADIOLOGY RECEIVED CALL FROM RADIOLOGY DIR ON BEHALF OF RADIOLOGIST. PATIENT HAD SIMILAR STUDY YESTERDAY AND NOT RECOMMENDING MORE CONTRAST. A VENOUS DOPPLER WAS RECOMMENDED. UPDATED ATTENDING. ORDERS RECEIVED AND ENTERED.
--- NOTE | 2024-09-28 17:10 | NUR ---
Nutrition consult per low alb level Reviewed labs, notes, and medications. Pt with cirrhotic liver, w/ gastric ulcer, s/p blood transfusion, HH, zofran, sedated, lasix, b-complex, Na 134(L), Ca 7.2(L), bilirubin 1.4(L), elevated CRP per chart review. 100%PO intake, wt via standing scale, last BM 09/27/24, moderate pitting, well nourished, no wounds, -500 ml balance 09/27/24 per nursing. Low albumin may be due to inflammation Recommendations: -Provide HH diet + 6 small meals + ensure HP tid w/ trays -Monitor PO intake -Encourage PO intake as able -Monitor BM -If no BM >3 days consider stool softener -Monitor electrolytes -Replenish electrolytes per protocol -Monitor wts -Reweigh as able -Order Vit D, vit b-12 labs to rule out deficiencies -Order lipid panel -Provide b-complex -Recommend Pt to follow up with PCP -Monitor goals of care RD to follow + available for consult per protocol Addendum: 09/28/24 at [address] Amended: Links added.
[2024-09-28 17:39] LABS: CHOLESTEROL 82 mg/dL (<200); HDL CHOLESTEROL 39 mg/dL (29-71); LDL DIRECT 41 mg/dL (0-99); TRIGLYCERIDES 35 mg/dL (30-200)
[2024-09-28] MEDS: cefTRIAXone 1G VIAL IVPB SCH (19:59)
--- NOTE | 2024-09-28 21:13 | HMCIMG ---
ULTRASOUND VENOUS DOPPLER RIGHT UPPER EXTREMITY INDICATION: Swelling. TECHNIQUE: Routine grayscale and color and spectral Doppler ultrasound of the right upper extremity veins performed in real-time, and images subsequently made available for review. COMPARISON: None FINDINGS: Normal compression, vascular antegrade flow, respiratory variation and spectral waveforms identified within the right internal jugular vein, subclavian vein, axillary vein, brachial vein, cephalic vein, and basilic vein. No evidence for an intraluminal thrombus. No soft tissue abnormalities demonstrated. IMPRESSION: No evidence for right upper extremity venous thrombosis.
[2024-09-29] VITALS (8 sets, daily range): BP systolic 125–153; BP diastolic 57–84; PULSE 78–90; RESP 16–24; TEMP 97.5–100.1; O2SAT 98–100
[2024-09-29] MEDS: acetaMINOPHEN WITH coDEINE 1 TAB TAB PO PRN (11:23)
--- NOTE | 2024-09-29 12:16 | PN ---
[facility] PROGRESS NOTE Date of Service: September 29, 2024 Time of Service: 12:14 SUBJECTIVE: [ ] Mr. Madrigal is a 49-year-old male with a history of esophageal viruses who presented to the ED with chief complaint of worsening bilateral lower extremity edema and right hand edema, and left arm pain/shoulder over the last week. The patient was here on the 10 of September where he received an injection to his sciatic nerve. The patient reported that his is right hand is swollen and extremely painful. 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 The patient denied any history of cirrhosis, fevers, chills, associated GI symptoms, chest pain or shortness of breath. 09/26/24 status post blood transfusion. Receive a total of1 unit and half of the 2nd unit patient developed chills. Latest Hgb: 7. 4 will hold platelet for now: 47 level. Patient is scheduled for EGD we will follow recommendations continue with PPIs. 1600: s/p EGD: findings; nonbleeding gastric ulcer with a clean ulcer base Rufino class III , acute gastritis, portal hypertensive gastropathy, large greater 5 mm esophageal varices, esophagogastric landmarks normal duodenal bulb and 2nd portion of the duodenum, Dr. Vela's recommendations low-sodium diet Protonix 40 mg twice a day for eight weeks and give a beta-jose elias with dosage titrate by the heart rate return in clinic two weeks repeat upper GI EGD six months to evaluate the response to therapy. We will hold beta-blockers for now we will reassess he is currently running between 60s and 70s most likely a small dose of metoprolol upon discharge we will reassess tomorrow. Spoke to primary nurse we are going to repeat venous Doppler to right arm concerned with possible DVT if negative we will do a CT with IV contrast of right upper extremity nurse we will follow-up in reach out. 09/27/24 patient is lying in bed patient reports no chest pain shortness a breath. Patient remains anemic latest hemoglobin 7.6 hematocrit 27.3. Reports no active bleeding. Patient remains with good heart rate control given to portal hypertension. We continue to hold off on beta-blockers as recommended by GI. We will follow-up CT of left upper arm patient's left arm continues to be swollen and heavy sensation. [address] negative for DVT were occlusion. We will start small dose of Lasix advised patient to keep left arm elevated at all times and to move fingers we will get Physical therapy for range of motion. 09/28/24 patient is lying in bed encouraged to ambulate. Patient's left arm some improving with swelling. Continues to elevate. Complained of right wrist pain we will get a x-ray three-view in three-view of right elbow. 09/29/24 edema to right arm improving with Lasix we will continue for one more day we will get a MRI of right hand and risk. Patient now is able to range of motion fingers. PT continues to do range of motion. REVIEW OF SYSTEMS 12-point ROS reviewed with the patient. Pertinent positives mentioned above. Otherwise negative, noncontributory or non-pertinent. PHYSICAL EXAM GENERAL APPEARANCE: The patient is awake, alert, and oriented, in no acute cardiopulmonary distress. NEUROLOGICAL: Cranial nerves II-XII grossly intact. Motor is 5/5 in bilateral upper and lower extremities proximal to distal. No sensory deficits. HEENT: Face is symmetric. Pupils are equal and reactive. Extraocular movements are intact. NECK: Supple. No JVD. No thyromegaly. No submental, submandibular, pre- /postauricular, occipital or supraclavicular lymphadenopathy. CHEST: Normal chest expansion. No Telemetry. LUNGS: Absence of any rales, rhonchi or any wheezing. CARDIOVASCULAR: Regular. S1 and S2 normal. No appreciable rubs, murmurs or gallops. ABDOMEN: Soft, nontender, and nondistended. There is no rebound, voluntary guarding, or rigidity. : Deferred. No Quan. EXTREMITIES: Non-edematous and not cyanotic. No clubbing. Good capillary refi ll. SKIN: No skin breakdown. Vital Signs (last 8hr) Date Time Temp Pulse Resp B/P (MAP) Pulse Ox O2 Delivery O2 Flow Rate FiO2 09/29/24 11:57 97.9 79 18 125/70 99 Room Air 09/29/24 07:56 98.2 78 17 139/57 100 Room Air LABS: Laboratory: Test 09/29/24 11:02 09/28/24 05:35 Range/Units Whole Blood Glucose 116 H 70-110 MG/DL White Blood Count 9.2 4.8-10.8 K/uL Red Blood Count 4.10 L 4.50-6.20 MIL/uL Hemoglobin 8.2 L 14.0-18.0 g/dL Hematocrit 28.7 L 42-54 % Mean Corpuscular Volume 70.0 L 79-99 fL Mean Corpuscular Hemoglobin 20.0 L 27.0-33.0 pg Mean Corpuscular Hemoglobin Concent 28.6 L 32.0-36.0 g/dL Red Cell Distribution Width 20.8 H 11.0-15.5 % Platelet Count 54 L 130-400 K/uL Mean Platelet Volume 8.6 7.5-10.5 fL Immature Granulocyte % (Auto) 0.7 0-1 % Neutrophils (%) (Auto) 74.4 40.0-77.0 % Lymphocytes (%) (Auto) 14.7 L 21.0-51.0 % Monocytes (%) (Auto) 9.7 3.0-13.0 % Eosinophils (%) (Auto) 0.4 0.0-8.0 % Basophils (%) (Auto) 0.1 0.0-5.0 % Neutrophils # (Auto) 6.8 1.8-7.7 K/uL Lymphocytes # (Auto) 1.4 1.0-4.8 K/uL Monocytes # (Auto) 0.9 0.1-1.0 K/uL Eosinophils # (Auto) 0.04 0.00-0.70 K/uL Basophils # (Auto) 0.01 0.00-0.20 K/uL Absolute Immature Granulocyte (auto 0.06 0-1 K/uL Nucleated Red Blood Cells 0.0 0.0-0.19 % Sodium Level 134 L 136-145 mmol/L Potassium Level 4.5 3.5-5.1 mmol/L Chloride Level 103 101-111 mmol/L Carbon Dioxide Level 26 21-32 mmol/L Blood Urea Nitrogen 17 7-18 mg/dL Creatinine 0.5 0.5-1.3 mg/dL Glomerular Filtration Rate Calc 125 >90 mL/min Random Glucose 98 70-105 mg/dL Total Calcium 7.2 L 8.5-10.1 mg/dL Magnesium Level 1.80 1.80-2.40 mg/dL Total Bilirubin 1.4 H 0.2-1.0 mg/dL Aspartate Amino Transf (AST/SGOT) 20 10-37 U/L Alanine Aminotransferase (ALT/SGPT) 25 12-78 U/L Alkaline Phosphatase 86 50-136 U/L Total Protein 6.2 6.0-8.3 g/dL Albumin 1.8 L 3.5-5.0 g/dL Triglycerides Level 35 30-200 mg/dL Cholesterol Level 82 <200 mg/dL LDL Cholesterol 41 0-99 mg/dL HDL Cholesterol 39 29-71 mg/dL Vitamin B12 Level 2973 H 193-986 pg/mL Vitamin D 25-Hydroxy 31.7 30.0-100.0 ng/mL Current Medications Medications (Trade) Dose Ordered Sig/Kali Route PRN Reason Start Time Stop Time Status Last Admin Dose Admin Acetaminophen (TYLenol 325MG TAB) 650 mg Q6H PRN PO FEVER/MILD PAIN LEVEL 1-3 09/25/24 04:30 10/25/24 04:29 09/28/24 22:41 650 MG Acetaminophen (TYLenol 650MG SUPPOSITORY) 650 mg Q6H PRN RC FEVER / MILD PAIN 1-3 IF NPO 09/25/24 04:30 10/25/24 04:29 Acetaminophen/ Codeine Phosphate (TYLenol-coDEINE TAB) 1 tab Q6H PRN PO MODERATE PAIN (4-6) 09/29/24 11:30 10/29/24 11:29 09/29/24 11:23 1 TAB Ceftriaxone Sodium (ROCEphine 1G INJ) 1 gm Q24H IVPB 09/28/24 21:00 10/08/24 20:59 09/28/24 19:59 1 GM Folic Acid (FOLic ACID 1 MG TABLET) 1 mg DAILY PO 09/28/24 09:00 10/28/24 08:59 09/29/24 09:05 1 MG Furosemide (LASix 20MG VIAL) 20 mg DAILY IV 09/27/24 14:30 10/27/24 14:29 09/29/24 09:05 20 MG Hydralazine HCl (APRESOLine 20MG INJ) 10 mg Q2H PRN IV SBP GREATER THAN 160 09/25/24 04:30 10/25/24 04:29 Insulin Human Regular (humuLIN R 100 UNIT/ML 3ML) INSULIN SLIDING SCAL... ACHS SQ 09/27/24 16:30 10/27/24 16:29 Insulin Human Regular (humuLIN R 100 UNIT/ML 3ML) INSULIN SLIDING SCAL... Q6H6 SQ 09/25/24 06:00 09/27/24 13:34 DC 09/26/24 18:58 2 UNIT Lidocaine (Lidocaine Patch 4%) 1 each DAILY TP 09/25/24 09:30 09/27/24 14:21 DC 09/27/24 09:03 1 EACH Lidocaine (Lidocaine Patch 4%) 1 each DAILY TP 09/27/24 14:30 10/27/24 14:29 09/29/24 09:06 1 EACH Magnesium Sulfate 50 ml @ 0 mls/hr PROTOCOL PRN IV low mag level 09/28/24 13:00 10/28/24 12:59 09/28/24 13:32 50 MLS/HR Morphine Sulfate (morPHINE 2MG SYG) 1 mg Q4H4 PRN IVP MODERATE PAIN (4-6) 09/27/24 14:30 10/04/24 14:29 09/28/24 22:39 1 MG Octreotide Acetate 1250 mcg/ Sodium Chloride 250 ml @ 0 mls/hr PROTOCOL IV 09/25/24 07:00 09/26/24 18:52 DC Ondansetron HCl (zoFRAN 4MG INJ) 4 mg Q6H PRN IVP NAUSEA/VOMITING 09/25/24 04:30 10/25/24 04:29 09/28/24 22:39 4 MG Pantoprazole Sodium (PROTonix 40MG INJ) 40 mg BID IVP 09/25/24 06:45 09/26/24 23:06 DC 09/26/24 20:18 40 MG Pantoprazole Sodium (PROTonix 40MG TAB) 40 mg BID PO 09/27/24 09:00 10/27/24 08:59 09/29/24 09:05 40 MG Piperacillin Sod/ Tazobactam Sod (Zosyn 3.375gm+NS 50ml) 3.375 gm Q8H IVPB 09/28/24 09:00 09/28/24 12:22 DC 09/28/24 09:03 3.375 GM Propranolol HCl (Inderal) 10 mg BID PO 09/27/24 09:00 10/27/24 08:59 09/29/24 09:05 10 MG Sodium Chloride (NS 50ml) 50 ml AD IV 09/28/24 09:00 09/28/24 08:45 DC Temazepam (restORIL 15 MG CAP) 15 mg HS PRN PO INSOMNIA/SLEEP 09/25/24 04:30 10/25/24 04:29 DIAGNOSTICS / RADIOLOGY: [ ] ASSESSMENT: Severe anemia, POA requiring blood transfusion POA status post EGD: findings; nonbleeding gastric ulcer with a clean ulcer base Rufino class III , acute gastritis, portal hypertensive gastropathy, large greater 5 mm esophageal varices, esophagogastric landmarks normal duodenal bulb and 2nd portion of the duodenum, suspecting transfusion reaction on this admission POA Cirrhotic liver with enlarged spleen, per CT 09/24/2024 Abdominal varices, per CT 09/24/2024 Small ascites, per CT 09/24/2024 Mild pulmonary vascular congestion or interstitial infiltrates, per chest x-ray on 09/24/2024 Thrombocytopenia, POA Bilateral lower extremity edema unilateral swelling to right forearm /hand POA Elevated D-dimer rule out PE/DVT Hyperglycemia Protein calorie malnutrition/hypoalbuminemia Obese, BMI 34.4 Hx of upper GI bleed likely esophageal varices, possible ulcers-cause NSAIDs use [hx of Ardosons (Indomethacine) use] History of esophageal varus, EGD UTI: gram negative Proteus Mirabilis not POA Iron Deficiency POA PLAN: Admit to medical floor with telemetry monitoring. Diet: Tolerating diet. financial reporting consultant: GI: DR Vela we will follow his recommendations prior to discharge. cont with PPIs: Protonix 40 mg IV b.i.d.. Recommendations for GI p.o. for eight weeks We continue to monitor H&H transfuse to keep HGB > 7.0 supplement: folic acid 1 mg po daily attending urologist consulted Test: MR right hand and wrist today will follow continue with lasix IV continue with ARM Sling passive rom Glucometer checks ac/hs monitoring SSRI 1/2 scale Blood pressure checks every 4 hours and as needed. PT services to eval and treat: right arm passive ROM A.m. labs: CBC, CMP, Mag, in am Monitor renal and liver function. Monitor electrolytes and treat accordingly. GI and DVT prophylaxis: Protonix and SCDs. ATTESTATION BY PHYSICIAN I have seen and examined the patient. I reviewed the documentation, medical decision making, and treatment plan as noted by the mid-level provider above. I agree with the findings and plan of care. KUSH BLACK MD, ELIZABETH NP September 29, 2024 12:16
[2024-09-30] VITALS (8 sets, daily range): BP systolic 122–154; BP diastolic 67–79; PULSE 75–85; RESP 16–21; TEMP 97.9–99.4; O2SAT 99–100
--- NOTE | 2024-09-30 08:56 | PN ---
[facility] PROGRESS NOTE Date of Service: September 30, 2024 Time of Service: 08:56 SUBJECTIVE: [ ] Mr. Madrigal is a 49-year-old male with a history of esophageal viruses who presented to the ED with chief complaint of worsening bilateral lower extremity edema and right hand edema, and left arm pain/shoulder over the last week. The patient was here on the 10 of September where he received an injection to his sciatic nerve. The patient reported that his is right hand is swollen and extremely painful. 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 The patient denied any history of cirrhosis, fevers, chills, associated GI symptoms, chest pain or shortness of breath. 09/26/24 status post blood transfusion. Receive a total of1 unit and half of the 2nd unit patient developed chills. Latest Hgb: 7. 4 will hold platelet for now: 47 level. Patient is scheduled for EGD we will follow recommendations continue with PPIs. 1600: s/p EGD: findings; nonbleeding gastric ulcer with a clean ulcer base Rufino class III , acute gastritis, portal hypertensive gastropathy, large greater 5 mm esophageal varices, esophagogastric landmarks normal duodenal bulb and 2nd portion of the duodenum, Dr. Vela's recommendations low-sodium diet Protonix 40 mg twice a day for eight weeks and give a beta-jose elias with dosage titrate by the heart rate return in clinic two weeks repeat upper GI EGD six months to evaluate the response to therapy. We will hold beta-blockers for now we will reassess he is currently running between 60s and 70s most likely a small dose of metoprolol upon discharge we will reassess tomorrow. Spoke to primary nurse we are going to repeat venous Doppler to right arm concerned with possible DVT if negative we will do a CT with IV contrast of right upper extremity nurse we will follow-up in reach out. 09/27/24 patient is lying in bed patient reports no chest pain shortness a breath. Patient remains anemic latest hemoglobin 7.6 hematocrit 27.3. Reports no active bleeding. Patient remains with good heart rate control given to portal hypertension. We continue to hold off on beta-blockers as recommended by GI. We will follow-up CT of left upper arm patient's left arm continues to be swollen and heavy sensation. [address] negative for DVT were occlusion. We will start small dose of Lasix advised patient to keep left arm elevated at all times and to move fingers we will get Physical therapy for range of motion. 09/28/24 patient is lying in bed encouraged to ambulate. Patient's left arm some improving with swelling. Continues to elevate. Complained of right wrist pain we will get a x-ray three-view in three-view of right elbow. 09/29/24 edema to right arm improving with Lasix we will continue for one more day we will get a MRI of right hand and risk. Patient now is able to range of motion fingers. PT continues to do range of motion. 09/30/24 patient is sitting in chair patient is waiting for MRI of right arm patient now unable to move left arm left shoulder swollen we will get a x-ray two-view. Continue with pain management and lidocaine patch. Given to numerous imaging for DVT has been ruled out we will consult Orthopedic for recommendations. Patient is alert oriented x3 denied chest pain or shortness for breath REVIEW OF SYSTEMS 12-point ROS reviewed with the patient. Pertinent positives mentioned above. Otherwise negative, noncontributory or non-pertinent. PHYSICAL EXAM GENERAL APPEARANCE: The patient is awake, alert, and oriented, in no acute cardiopulmonary distress. NEUROLOGICAL: Cranial nerves II-XII grossly intact. Motor is 5/5 in bilateral upper and lower extremities proximal to distal. No sensory deficits. HEENT: Face is symmetric. Pupils are equal and reactive. Extraocular movements are intact. NECK: Supple. No JVD. No thyromegaly. No submental, submandibular, pre- /postauricular, occipital or supraclavicular lymphadenopathy. CHEST: Normal chest expansion. No Telemetry. LUNGS: Absence of any rales, rhonchi or any wheezing. CARDIOVASCULAR: Regular. S1 and S2 normal. No appreciable rubs, murmurs or gallops. ABDOMEN: Soft, nontender, and nondistended. There is no rebound, voluntary guarding, or rigidity. : Deferred. No Quan. EXTREMITIES: Non-edematous and not cyanotic. No clubbing. Good capillary refill. SKIN: No skin breakdown. Vital Signs (last 8hr) Date Time Temp Pulse Resp B/P (MAP) Pulse Ox O2 Delivery O2 Flow Rate FiO2 09/30/24 08:00 98.2 79 19 136/79 99 Room Air 09/30/24 04:00 97.9 81 20 131/76 99 Room Air LABS: Laboratory: Test 09/30/24 05:03 Range/Units Whole Blood Glucose 103 70-110 MG/DL Current Medications Medications (Trade) Dose Ordered Sig/Kali Route PRN Reason Start Time Stop Time Status Last Admin Dose Admin Acetaminophen (TYLenol 325MG TAB) 650 mg Q6H PRN PO FEVER/MILD PAIN LEVEL 1-3 09/25/24 04:30 10/25/24 04:29 09/28/24 22:41 650 MG Acetaminophen (TYLenol 650MG SUPPOSITORY) 650 mg Q6H PRN RC FEVER / MILD PAIN 1-3 IF NPO 09/25/24 04:30 10/25/24 04:29 Acetaminophen/ Codeine Phosphate (TYLenol-coDEINE TAB) 1 tab Q6H PRN PO MODERATE PAIN (4-6) 09/29/24 11:30 10/29/24 11:29 09/29/24 18:34 1 TAB Ceftriaxone Sodium (ROCEphine 1G INJ) 1 gm Q24H IVPB 09/28/24 21:00 10/08/24 20:59 09/29/24 20:38 1 GM Folic Acid (FOLic ACID 1 MG TABLET) 1 mg DAILY PO 09/28/24 09:00 10/28/24 08:59 09/29/24 09:05 1 MG Furosemide (LASix 20MG VIAL) 20 mg DAILY IV 09/27/24 14:30 10/27/24 14:29 09/29/24 09:05 20 MG Hydralazine HCl (APRESOLine 20MG INJ) 10 mg Q2H PRN IV SBP GREATER THAN 160 09/25/24 04:30 10/25/24 04:29 Insulin Human Regular (humuLIN R 100 UNIT/ML 3ML) INSULIN SLIDING SCAL... ACHS SQ 09/27/24 16:30 10/27/24 16:29 Insulin Human Regular (humuLIN R 100 UNIT/ML 3ML) INSULIN SLIDING SCAL... Q6H6 SQ 09/25/24 06:00 09/27/24 13:34 DC 09/26/24 18:58 2 UNIT Lidocaine (Lidocaine Patch 4%) 1 each DAILY TP 09/25/24 09:30 09/27/24 14:21 DC 09/27/24 09:03 1 EACH Lidocaine (Lidocaine Patch 4%) 1 each DAILY TP 09/27/24 14:30 10/27/24 14:29 09/29/24 09:06 1 EACH Magnesium Sulfate 50 ml @ 0 mls/hr PROTOCOL PRN IV low mag level 09/28/24 13:00 10/28/24 12:59 09/28/24 13:32 50 MLS/HR Morphine Sulfate (morPHINE 2MG SYG) 1 mg Q4H4 PRN IVP MODERATE PAIN (4-6) 09/27/24 14:30 10/04/24 14:29 09/29/24 23:23 1 MG Octreotide Acetate 1250 mcg/ Sodium Chloride 250 ml @ 0 mls/hr PROTOCOL IV 09/25/24 07:00 09/26/24 18:52 DC Ondansetron HCl (zoFRAN 4MG INJ) 4 mg Q6H PRN IVP NAUSEA/VOMITING 09/25/24 04:30 10/25/24 04:29 09/28/24 22:39 4 MG Pantoprazole Sodium (PROTonix 40MG INJ) 40 mg BID IVP 09/25/24 06:45 09/26/24 23:06 DC 09/26/24 20:18 40 MG Pantoprazole Sodium (PROTonix 40MG TAB) 40 mg BID PO 09/27/24 09:00 10/27/24 08:59 09/29/24 20:38 40 MG Piperacillin Sod/ Tazobactam Sod (Zosyn 3.375gm+NS 50ml) 3.375 gm Q8H IVPB 09/28/24 09:00 09/28/24 12:22 DC 09/28/24 09:03 3.375 GM Propranolol HCl (Inderal) 10 mg BID PO 09/27/24 09:00 10/27/24 08:59 09/29/24 20:38 10 MG Sodium Chloride (NS 50ml) 50 ml AD IV 09/28/24 09:00 09/28/24 08:45 DC Temazepam (restORIL 15 MG CAP) 15 mg HS PRN PO INSOMNIA/SLEEP 09/25/24 04:30 10/25/24 04:29 DIAGNOSTICS / RADIOLOGY: [ ] ASSESSMENT: Severe anemia, POA requiring blood transfusion POA status post EGD: findings; nonbleeding gastric ulcer with a clean ulcer base Rufino class III , acute gastritis, portal hypertensive gastropathy, large greater 5 mm esophageal varices, esophagogastric landmarks normal duodenal bulb and 2nd portion of the duodenum, suspecting transfusion reaction on this admission POA Cirrhotic liver with enlarged spleen, per CT 09/24/2024 Abdominal varices, per CT 09/24/2024 Small ascites, per CT 09/24/2024 Mild pulmonary vascular congestion or interstitial infiltrates, per chest x-ray on 09/24/2024 Thrombocytopenia, POA Bilateral lower extremity edema unilateral swelling to right forearm /hand POA Elevated D-dimer rule out PE/DVT Hyperglycemia Protein calorie malnutrition/hypoalbuminemia Obese, BMI 34.4 Hx of upper GI bleed likely esophageal varices, possible ulcers-cause NSAIDs use [hx of Ardosons (Indomethacine) use] History of esophageal varus, EGD UTI: gram negative Proteus Mirabilis not POA Iron Deficiency POA PLAN: Admit to medical floor with telemetry monitoring. Diet: Tolerating diet. business management consultant: GI: DR Vela we will follow his recommendations prior to discharge. cont with PPIs: Protonix 40 mg IV b.i.d.. Recommendations for GI p.o. for eight weeks We continue to monitor H&H transfuse to keep HGB > 7.0 supplement: folic acid 1 mg po daily power bender operator consulted Test: MR right hand and wrist pending will follow Left shoulder xray today: will consult DR Valencia for recommendations continue with lasix IV continue with ARM Sling right arm: edema improving continue with lasix, cont with passive ROM with PT services Pain mangement: Tylenol 3 as needed for pain cont to elevate right arm and left arm Glucometer checks ac/hs monitoring SSRI 1/2 scale Blood pressure checks every 4 hours and as needed. A.m. labs: CBC, CMP, Mag, in am Monitor renal and liver function. Monitor electrolytes and treat accordingly. GI and DVT prophylaxis: Protonix and SCDs. all questions answered: further orders as per response to tx. ATTESTATION BY PHYSICIAN I have seen and examined the patient. I reviewed the documentation, medical decision making, and treatment plan as noted by the mid-level provider above. I agree with the findings and plan of care. KUSH BLACK MD, ELIZABETH NP September 30, 2024 08:56
--- NOTE | 2024-09-30 13:42 | HMCIMG ---
SHOULDER COMP 2+VWS LT INDICATION: Limited ROM and swelling TECHNIQUE: SHOULDER COMP 2+VWS LT. FINDINGS AND IMPRESSION: No displaced fracture or dislocation is seen. Correlate clinically. There is mild soft tissue swelling. Mild degenerative changes of the AC joint is seen. No radiopaque foreign body is identified.
[2024-10-01 03:50] VITALS: BP 131/73; PULSE 73; RESP 20; TEMP 98.3
[2024-10-01 05:20] LABS: BASOPHILS # (AUTO) 0.01 K/uL (0.00-0.20); BASOPHILS % (AUTO) 0.1 % (0.0-5.0); EOSINOPHILS # (AUTO) 0.13 K/uL (0.00-0.70); EOSINOPHILS % (AUTO) 1.8 % (0.0-8.0); HEMATOCRIT 26.7 % (42-54); IMMATURE GRANULOCYTE ABSOLUTE 0.03 K/uL (0-1); LYMPHOCYTES # (AUTO) 1.1 K/uL (1.0-4.8); MEAN CORPUSCULAR HEMOGLOBIN 20.1 pg (27.0-33.0); MEAN CORPUSCULAR HGB CONC 29.2 g/dL (32.0-36.0); MEAN CORPUSCULAR VOLUME 68.6 fL (79-99); MONOCYTES # (AUTO) 0.6 K/uL (0.1-1.0); MONOCYTES % (AUTO) 8.3 % (3.0-13.0); NEUTROPHILS # (AUTO) 5.5 K/uL (1.8-7.7); NEUTROPHILS % (AUTO) 74.4 % (40.0-77.0); PLATELET COUNT (AUTO) 65 K/uL (130-400); RED BLOOD CELL COUNT(AUTO) 3.89 MIL/uL (4.50-6.20); RED CELL DISTRIBUTION WIDTH 21.7 % (11.0-15.5); WHITE BLOOD COUNT (AUTO) 7.4 K/uL (4.8-10.8)
[2024-10-01 05:40] LABS: ALBUMIN 1.6 g/dL (3.5-5.0); CREATININE 0.6 mg/dL (0.5-1.3); MAGNESIUM 2.5 mg/dL (1.80-2.40); POTASSIUM 3.9 mmol/L (3.5-5.1); TOTAL PROTEIN, SERUM 6.6 g/dL (6.0-8.3)
[2024-10-01 07:50] VITALS: O2SAT 99
[2024-10-01 07:56] VITALS: BP 137/73; PULSE 76; RESP 19; TEMP 98.6
[2024-10-01 12:00] VITALS: BP 123/72; PULSE 67; RESP 19; TEMP 97.9
--- NOTE | 2024-10-01 12:09 | CONS ---
ORTHOPEDIC CONSULTATION CHIEF COMPLAINT: Severe right hand and forearm pain and swelling as well as left shoulder pain as well as sciatic pain that is not as severe as it initially was. HISTORY OF PRESENT ILLNESS: This 49-year-old male states that 09/12 with no activity or injury he can recall began having pain and swelling in his wrist. This slowly has continued. He when coming to the hospital where he was diagnosed as having severe anemia. They have been working on this and have diagnosed him with gastritis. However, he continues to have pain and swelling in his hand and forearm on the right and pain in his shoulder that is why he is called for consultation. PAST MEDICAL HISTORY: Positive for esophageal varices. PAST SURGICAL HISTORY: Positive for EGD and he has also had GI workup while in-house. PHYSICAL EXAMINATION: GENERAL: A well-developed adult male, appearing his stated age of 49 years. He is alert, pleasant, and cooperative during the exam. His son is at the bedside. EXTREMITIES: He is motor, sensory intact to the radial, ulnar and median nerves of his right upper extremity but does have marked edema on the dorsum of the hand and in the wrist and distal forearm on the ulnar side, which is the dependent side. He has pain on attempted range of motion of his fingers or his wrist. This is global and not any kind of dermatome. His skin is warm and he has a palpable radial pulse. IMAGING STUDIES: X-rays of his hand, wrist and elbow show [id number] degenerative changes but no acute fractures or dislocations. X-rays of his left shoulder again show mild degenerative changes with a type 2 acromion. No fractures or dislocations noted. The patient does have tenderness but not as much edema in the left shoulder as he does in his forearm. ASSESSMENT: Inflammation of the right upper extremity, wrist and hand of unknown origin. PLAN: I am going to ask for an ulnar gutter splint of Orthoglass to be placed. I see no surgical indications for the patient. I am recommending a rheumatology consult as an outpatient. TID: [id number] RECEIPT: [id number]
--- NOTE | 2024-10-01 12:48 | PN ---
[facility] PROGRESS NOTE Date of Service: October 01, 2024 Time of Service: 12:[address] Guerrero SUBJECTIVE: [ ] Mr. Madrigal is a 49-year-old male with a history of esophageal viruses who presented to the ED with chief complaint of worsening bilateral lower extremity edema and right hand edema, and left arm pain/shoulder over the last week. The patient was here on the 10 of September where he received an injection to his sciatic nerve. The patient reported that his is right hand is swollen and extremely painful. 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 The patient denied any history of cirrhosis, fevers, chills, associated GI symptoms, chest pain or shortness of breath. 09/26/24 status post blood transfusion. Receive a total of1 unit and half of the 2nd unit patient developed chills. Latest Hgb: 7. 4 will hold platelet for now: 47 level. Patient is scheduled for EGD we will follow recommendations continue with PPIs. 1600: s/p EGD: findings; nonbleeding gastric ulcer with a clean ulcer base Rufino class III , acute gastritis, portal hypertensive gastropathy, large greater 5 mm esophageal varices, esophagogastric landmarks normal duodenal bulb and 2nd portion of the duodenum, Dr. Vela's recommendations low-sodium diet Protonix 40 mg twice a day for eight weeks and give a beta-jose elias with dosage titrate by the heart rate return in clinic two weeks repeat upper GI EGD six months to evaluate the response to therapy. We will hold beta-blockers for now we will reassess he is currently running between 60s and 70s most likely a small dose of metoprolol upon discharge we will reassess tomorrow. Spoke to primary nurse we are going to repeat venous Doppler to right arm concerned with possible DVT if negative we will do a CT with IV contrast of right upper extremity nurse we will follow-up in reach out. 09/27/24 patient is lying in bed patient reports no chest pain shortness a breath. Patient remains anemic latest hemoglobin 7.6 hematocrit 27.3. Reports no active bleeding. Patient remains with good heart rate control given to portal hypertension. We continue to hold off on beta-blockers as recommended by GI. We will follow-up CT of left upper arm patient's left arm continues to be swollen and heavy sensation. [address] negative for DVT were occlusion. We will start small dose of Lasix advised patient to keep left arm elevated at all times and to move fingers we will get Physical therapy for range of motion. 09/28/24 patient is lying in bed encouraged to ambulate. Patient's left arm some improving with swelling. Continues to elevate. Complained of right wrist pain we will get a x-ray three-view in three-view of right elbow. 09/29/24 edema to right arm improving with Lasix we will continue for one more day we will get a MRI of right hand and risk. Patient now is able to range of motion fingers. PT continues to do range of motion. 09/30/24 patient is sitting in chair patient is waiting for MRI of right arm patient now unable to move left arm left shoulder swollen we will get a x-ray two-view. Continue with pain management and lidocaine patch. Given to numerous imaging for DVT has been ruled out we will consult Orthopedic for recommendations. Patient is alert oriented x3 denied chest pain or shortness for breath 10/01 patient was seen by nurse practitioner physician during rounding 40. Patient refused MRI of the right arm stating that he was not able to lift throughout. Dr. Valencia evaluated the patient and at this moment he is recommending x-ray of the wrist if an x-ray will be negative he will be signing off and placed hand in the brace up to the elbow. Also consult halver machine operator outpatient. H&H stable. WBC 7.4. We will continue to monitor patient in the meantime. A.m. labs REVIEW OF SYSTEMS 12-point ROS reviewed with the patient. Pertinent positives mentioned above. Otherwise negative, noncontributory or non-pertinent. PHYSICAL EXAM GENERAL APPEARANCE: The patient is awake, alert, and oriented, in no acute cardiopulmonary distress. NEUROLOGICAL: Cranial nerves II-XII grossly intact. Motor is 5/5 in bilateral upper and lower extremities proximal to distal. No sensory deficits. HEENT: Face is symmetric. Pupils are equal and reactive. Extraocular movements are intact. NECK: Supple. No JVD. No thyromegaly. No submental, submandibular, pre- /postauricular, occipital or supraclavicular lymphadenopathy. CHEST: Normal chest expansion. No Telemetry. LUNGS: Absence of any rales, rhonchi or any wheezing. CARDIOVASCULAR: Regular. S1 and S2 normal. No appreciable rubs, murmurs or gallops. ABDOMEN: Soft, nontender, and nondistended. There is no rebound, voluntary guarding, or rigidity. : Deferred. No Quan. EXTREMITIES: Non-edematous and not cyanotic. No clubbing. Good capillary refill. SKIN: No skin breakdown. Vital Signs (last 8hr) Date Time Temp Pulse Resp B/P (MAP) Pulse Ox O2 Delivery O2 Flow Rate FiO2 10/01/24 12:00 97.9 67 19 123/72 100 Room Air 21 10/01/24 07:56 98.6 76 19 137/73 99 Room Air LABS: Laboratory: Test 10/01/24 11:30 10/01/24 04:38 Range/Units Whole Blood Glucose 92 70-110 MG/DL White Blood Count 7.4 4.8-10.8 K/uL Red Blood Count 3.89 L 4.50-6.20 MIL/uL Hemoglobin 7.8 L 14.0-18.0 g/dL Hematocrit 26.7 L 42-54 % Mean Corpuscular Volume 68.6 L 79-99 fL Mean Corpuscular Hemoglobin 20.1 L 27.0-33.0 pg Mean Corpuscular Hemoglobin Concent 29.2 L 32.0-36.0 g/dL Red Cell Distribution Width 21.7 H 11.0-15.5 % Platelet Count 65 L 130-400 K/uL Mean Platelet Volume 9.4 7.5-10.5 fL Immature Granulocyte % (Auto) 0.4 0-1 % Neutrophils (%) (Auto) 74.4 40.0-77.0 % Lymphocytes (%) (Auto) 15.0 L 21.0-51.0 % Monocytes (%) (Auto) 8.3 3.0-13.0 % Eosinophils (%) (Auto) 1.8 0.0-8.0 % Basophils (%) (Auto) 0.1 0.0-5.0 % Neutrophils # (Auto) 5.5 1.8-7.7 K/uL Lymphocytes # (Auto) 1.1 1.0-4.8 K/uL Monocytes # (Auto) 0.6 0.1-1.0 K/uL Eosinophils # (Auto) 0.13 0.00-0.70 K/uL Basophils # (Auto) 0.01 0.00-0.20 K/uL Absolute Immature Granulocyte (auto 0.03 0-1 K/uL Nucleated Red Blood Cells 0.0 0.0-0.19 % Sodium Level 133 L 136-145 mmol/L Potassium Level 3.9 3.5-5.1 mmol/L Chloride Level 102 101-111 mmol/L Carbon Dioxide Level 28 21-32 mmol/L Blood Urea Nitrogen 14 7-18 mg/dL Creatinine 0.6 0.5-1.3 mg/dL Glomerular Filtration Rate Calc 118 >90 mL/min Random Glucose 100 70-105 mg/dL Total Calcium 7.1 L 8.5-10.1 mg/dL Magnesium Level 2.50 H 1.80-2.40 mg/dL Total Bilirubin 1.0 0.2-1.0 mg/dL Aspartate Amino Transf (AST/SGOT) 27 10-37 U/L Alanine Aminotransferase (ALT/SGPT) 29 12-78 U/L Alkaline Phosphatase 99 50-136 U/L Total Protein 6.6 6.0-8.3 g/dL Albumin 1.6 L 3.5-5.0 g/dL Current Medications Medications (Trade) Dose Ordered Sig/Kali Route PRN Reason Start Time Stop Time Status Last Admin Dose Admin Acetaminophen (TYLenol 325MG TAB) 650 mg Q6H PRN PO FEVER/MILD PAIN LEVEL 1-3 09/25/24 04:30 10/25/24 04:29 09/28/24 22:41 650 MG Acetaminophen (TYLenol 650MG SUPPOSITORY) 650 mg Q6H PRN RC FEVER / MILD PAIN 1-3 IF NPO 09/25/24 04:30 10/25/24 04:29 Acetaminophen/ Codeine Phosphate (TYLenol-coDEINE TAB) 1 tab Q6H PRN PO MODERATE PAIN (4-6) 09/29/24 11:30 10/29/24 11:29 10/01/24 09:04 1 TAB Ceftriaxone Sodium (ROCEphine 1G INJ) 1 gm Q24H IVPB 09/28/24 21:00 10/08/24 20:59 09/30/24 21:13 1 GM Folic Acid (FOLic ACID 1 MG TABLET) 1 mg DAILY PO 09/28/24 09:00 10/28/24 08:59 10/01/24 09:04 1 MG Furosemide (LASix 20MG VIAL) 20 mg DAILY IV 09/27/24 14:30 10/27/24 14:29 10/01/24 09:05 20 MG Hydralazine HCl (APRESOLine 20MG INJ) 10 mg Q2H PRN IV SBP GREATER THAN 160 09/25/24 04:30 10/25/24 04:29 Insulin Human Regular (humuLIN R 100 UNIT/ML 3ML) INSULIN SLIDING SCAL... ACHS SQ 09/27/24 16:30 10/27/24 16:29 Insulin Human Regular (humuLIN R 100 UNIT/ML 3ML) INSULIN SLIDING SCAL... Q6H6 SQ 09/25/24 06:00 09/27/24 13:34 DC 09/26/24 18:58 2 UNIT Lidocaine (Lidocaine Patch 4%) 1 each DAILY TP 09/25/24 09:30 09/27/24 14:21 DC 09/27/24 09:03 1 EACH Lidocaine (Lidocaine Patch 4%) 1 each DAILY TP 09/27/24 14:30 10/27/24 14:29 10/01/24 09:04 1 EACH Magnesium Sulfate 50 ml @ 0 mls/hr PROTOCOL PRN IV low mag level 09/28/24 13:00 10/28/24 12:59 09/28/24 13:32 50 MLS/HR Morphine Sulfate (morPHINE 2MG SYG) 1 mg Q4H4 PRN IVP MODERATE PAIN (4-6) 09/27/24 14:30 10/04/24 14:29 09/30/24 23:32 1 MG Octreotide Acetate 1250 mcg/ Sodium Chloride 250 ml @ 0 mls/hr PROTOCOL IV 09/25/24 07:00 09/26/24 18:52 DC Ondansetron HCl (zoFRAN 4MG INJ) 4 mg Q6H PRN IVP NAUSEA/VOMITING 09/25/24 04:30 10/25/24 04:29 09/28/24 22:39 4 MG Pantoprazole Sodium (PROTonix 40MG INJ) 40 mg BID IVP 09/25/24 06:45 09/26/24 23:06 DC 09/26/24 20:18 40 MG Pantoprazole Sodium (PROTonix 40MG TAB) 40 mg BID PO 09/27/24 09:00 10/27/24 08:59 10/01/24 09:04 40 MG Piperacillin Sod/ Tazobactam Sod (Zosyn 3.375gm+NS 50ml) 3.375 gm Q8H IVPB 09/28/24 09:00 09/28/24 12:22 DC 09/28/24 09:03 3.375 GM Propranolol HCl (Inderal) 10 mg BID PO 09/27/24 09:00 10/27/24 08:59 10/01/24 09:04 10 MG Sodium Chloride (NS 50ml) 50 ml AD IV 09/28/24 09:00 09/28/24 08:45 DC Temazepam (restORIL 15 MG CAP) 15 mg HS PRN PO INSOMNIA/SLEEP 09/25/24 04:30 10/25/24 04:29 DIAGNOSTICS / RADIOLOGY: [ ] ASSESSMENT: Severe anemia, POA requiring blood transfusion POA status post EGD: findings; nonbleeding gastric ulcer with a clean ulcer base Rufino class III , acute gastritis, portal hypertensive gastropathy, large greater 5 mm esophageal varices, esophagogastric landmarks normal duodenal bulb and 2nd portion of the duodenum, suspecting transfusion reaction on this admission POA Cirrhotic liver with enlarged spleen, per CT 09/24/2024 Abdominal varices, per CT 09/24/2024 Small ascites, per CT 09/24/2024 Mild pulmonary vascular congestion or interstitial infiltrates, per chest x-ray on 09/24/2024 Thrombocytopenia, POA Bilateral lower extremity edema unilateral swelling to right forearm /hand POA Elevated D-dimer rule out PE/DVT Hyperglycemia Protein calorie malnutrition/hypoalbuminemia Obese, BMI 34.4 Hx of upper GI bleed likely esophageal varices, possible ulcers-cause NSAIDs use [hx of Ardosons (Indomethacine) use] History of esophageal varus, EGD UTI: gram negative Proteus Mirabilis not POA Iron Deficiency POA PLAN: Admit to medical floor with telemetry monitoring. Diet: Tolerating diet. weight loss sales consultant: GI: DR Vela we will follow his recommendations prior to discharge. cont with PPIs: Protonix 40 mg IV b.i.d.. Recommendations for GI p.o. for eight weeks We continue to monitor H&H transfuse to keep HGB > 7.0 supplement: folic acid 1 mg po daily market risk specialist consulted Test: MR right hand and wrist was refused by patient As per Dr. Valencia order x-ray of the wrist if negative place hand in the brace up to the elbow. Follow-up Outpatient with the halver machine operator continue with lasix IV Discontinue arm sling per Dr. Valencia Pain mangement: Tylenol 3 as needed for pain cont to elevate right arm and left arm Glucometer checks ac/hs monitoring SSRI 1/2 scale Blood pressure checks every 4 hours and as needed. A.m. labs: CBC, CMP, Mag, in am Monitor renal and liver function. Monitor electrolytes and treat accordingly. GI and DVT prophylaxis: Protonix and SCDs. all questions answered: further orders as per response to tx. ATTESTATION BY PHYSICIAN I have seen and examined the patient. I reviewed the documentation, medical decision making, and treatment plan as noted by the mid-level provider above. I agree with the findings and plan of care. KUSH GUERRERO MD, KATARZYNA B GLYCERIN OPERATOR October 01, 2024 12:48
--- NOTE | 2024-10-01 13:45 | HMCIMG ---
Exam Type: WRIST 2VWS RT Clinical Information: swelling, numbness Comparison: None Findings: The bone examination is unremarkable. No fractures or dislocations are seen. No radiopaque foreign bodies are noted. Soft tissues are preserved. IMPRESSION: Normal examination.
[2024-10-01 16:00] VITALS: BP 131/69; PULSE 73; RESP 19; TEMP 98.2
[2024-10-01 20:00] VITALS: BP 143/76; PULSE 84; RESP 20; TEMP 98.7
[2024-10-02] VITALS: BP 138/73; PULSE 76; RESP 20; TEMP 98.6
[2024-10-02 04:00] VITALS: BP 126/74; PULSE 80; RESP 20; TEMP 98.2
[2024-10-02 05:00] LABS: BASOPHILS # (AUTO) 0.01 K/uL (0.00-0.20); BASOPHILS % (AUTO) 0.2 % (0.0-5.0); EOSINOPHILS # (AUTO) 0.11 K/uL (0.00-0.70); HEMATOCRIT 26.3 % (42-54); IMMATURE GRANULOCYTE ABSOLUTE 0.02 K/uL (0-1); LYMPHOCYTES # (AUTO) 0.8 K/uL (1.0-4.8); LYMPHOCYTES % (AUTO) 15.1 % (21.0-51.0); MEAN CORPUSCULAR HEMOGLOBIN 19.9 pg (27.0-33.0); MEAN CORPUSCULAR HGB CONC 28.5 g/dL (32.0-36.0); MEAN CORPUSCULAR VOLUME 69.9 fL (79-99); MONOCYTES # (AUTO) 0.4 K/uL (0.1-1.0); MONOCYTES % (AUTO) 7.6 % (3.0-13.0); NEUTROPHILS # (AUTO) 4.1 K/uL (1.8-7.7); NEUTROPHILS % (AUTO) 74.7 % (40.0-77.0); PLATELET COUNT (AUTO) 64 K/uL (130-400); RED BLOOD CELL COUNT(AUTO) 3.76 MIL/uL (4.50-6.20); RED CELL DISTRIBUTION WIDTH 22.1 % (11.0-15.5); WHITE BLOOD COUNT (AUTO) 5.5 K/uL (4.8-10.8)
[2024-10-02 05:38] LABS: ALBUMIN 1.6 g/dL (3.5-5.0); CREATININE 0.6 mg/dL (0.5-1.3); MAGNESIUM 1.6 mg/dL (1.80-2.40); POTASSIUM 3.8 mmol/L (3.5-5.1); TOTAL PROTEIN, SERUM 6.7 g/dL (6.0-8.3)
[2024-10-02 08:00] VITALS: BP 137/73; PULSE 77; RESP 18; TEMP 98.2; O2SAT 99
[2024-10-02] MEDS ORDERED: PROP10TA72 PO (08:29)
[2024-10-02] MEDS ORDERED: PANT40TA PO (08:29)
[2024-10-02] MEDS ORDERED: LIDO1ADH71 TP (08:29)
[2024-10-02] MEDS ORDERED: FOLI1 PO (08:29)
[2024-10-02] MEDS ORDERED: MAGNESIUM 2GM PREMIX 50ML 50 ML IV SCH (08:30)
--- NOTE | 2024-10-02 08:35 | DS ---
Discharge Summary Hospital Course Summary: Mr. Madrigal is a 49-year-old male with a history of esophageal viruses who presented to the ED with chief complaint of worsening bilateral lower extremity edema and right hand edema, and left arm pain/shoulder over the last week. The patient was here on the 10 of September where he received an injection to his sciatic nerve. The patient reported that his is right hand is swollen and extremely painful. 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 The patient denied any history of cirrhosis, fevers, chills, associated GI symptoms, chest pain or shortness of breath. 09/26/24 status post blood transfusion. Receive a total of1 unit and half of the 2nd unit patient developed chills. Latest Hgb: 7. 4 will hold platelet for now: 47 level. Patient is scheduled for EGD we will follow recommendations continue with PPIs. 1600: s/p EGD: findings; nonbleeding gastric ulcer with a clean ulcer base Rufino class III , acute gastritis, portal hypertensive gastropathy, large greater 5 mm esophageal varices, esophagogastric landmarks normal duodenal bulb and 2nd portion of the duodenum, Dr. Vela's recommendations low-sodium diet Protonix 40 mg twice a day for eight weeks and give a beta-jose elias with dosage titrate by the heart rate return in clinic two weeks repeat upper GI EGD six months to evaluate the response to therapy. We will hold beta-blockers for now we will reassess he is currently running between 60s and 70s most likely a small dose of metoprolol upon discharge we will reassess tomorrow. Spoke to primary nurse we are going to repeat venous Doppler to right arm concerned with possible DVT if negative we will do a CT with IV contrast of right upper extremity nurse we will follow-up in reach out. 09/27/24 patient is lying in bed patient reports no chest pain shortness a breath. Patient remains anemic latest hemoglobin 7.6 hematocrit 27.3. Reports no active bleeding. Patient remains with good heart rate control given to portal hypertension. We continue to hold off on beta-blockers as recommended by GI. We will follow-up CT of left upper arm patient's left arm continues to be swollen and heavy sensation. [address] negative for DVT were occlusion. We will start small dose of Lasix advised patient to keep left arm elevated at all times and to move fingers we will get Physical therapy for range of motion. 09/28/24 patient is lying in bed encouraged to ambulate. Patient's left arm some improving with swelling. Continues to elevate. Complained of right wrist pain we will get a x-ray three-view in three-view of right elbow. 09/29/24 edema to right arm improving with Lasix we will continue for one more day we will get a MRI of right hand and risk. Patient now is able to range of motion fingers. PT continues to do range of motion. 09/30/24 patient is sitting in chair patient is waiting for MRI of right arm patient now unable to move left arm left shoulder swollen we will get a x-ray two-view. Continue with pain management and lidocaine patch. Given to numerous imaging for DVT has been ruled out we will consult Orthopedic for recommendat ions. Patient is alert oriented x3 denied chest pain or shortness for breath 10/02/24 patient is seen and examined patient is clinically stable for discharge patient was seen by Orthopedic we will have patient follow-up in his clinic for a splint ortho glass to be placed wrist x-ray was negative for displacement or fracture. Multiple venous Dopplers were done on this admission all negative. X-ray of shoulder wrist elbow negative. Patient will need a referral for RA specialist for further workup. Swelling to bilateral arms have improved significantly patient able to move fingers this morning. Patient is clinically stable for discharge status post EGD patient will follow GI Dr. Vela in one- week. Recommend Protonix 40 mg p.o. twice a day for eight weeks. All questions were addressed. [employer] Source Intelligence Analyst(s): REASON: cirrhosis ORDERING PHYSICIAN: ANIHSA BARRAGAN MD PROCEDURE: ABD PELWWO - CT ABDOMEN/PELVIS W/WO CONTRAS CT ABDOMEN/PELVIS W/WO CONTRAS HISTORY: Cirrhosis COMPARISON: 06/03/2023 TECHNIQUE: Multiple sequential axial images of the abdomen and pelvis were obtained from the dome of the diaphragm through symphysis pubis. Patient was not given contrast through intravenous route. Oral contrast was not given. FINDINGS: No pleural effusion is seen bilaterally. There is no evidence of parenchymal disease or pulmonary nodule of the visualized lower lungs. Degenerative changes of the thoracolumbar spine are present. The heart is not enlarged. Cirrhosis changes of the liver are noted. The liver measured 13 cm. Spleen is enlarged measuring 23 cm. There are extensive abdominal varices. Gallbladder is poorly distended gallbladder wall thickening. Mesenteric fat stranding is seen. Nonspecific small bowel wall thickening is seen. There are bilateral inguinal hernias with fluid content. The liver, spleen, adrenal glands and pancreas are unremarkable. There is no evidence of hydronephrosis bilaterally. No evidence of renal stone is seen. Fecal material is seen in the colon. There are normal size retroperitoneal and mesenteric lymph nodes. Small ascites is seen predominantly in the pelvis. Atherosclerotic changes are present. Pelvic sidewalls are symmetric bilaterally. Bladder is well distended without wall thickening. IMPRESSION: 1. Cirrhotic liver with enlarged spleen and abdominal varices. Small ascites. REASON: pain immobility ORDERING PHYSICIAN: ANISHA BARRAGAN MD PROCEDURE: SHOL 2V LT - SHOULDER COMP 2+VWS LT Exam Type: SHOULDER COMP 2+VWS LT Clinical Information: pain immobility Comparison: None FINDINGS: The examination is unremarkable. Specifically, the glenohumeral and acromioclavicular joints are preserved. Visualized portions of the humerus, the scapula, and the clavicle as well as the upper ribcage are unremarkable. No pulmonary pathology is noted in the visualized portions of the upper lobe. The soft tissues are preserved. There are no other gross abnormalities. IMPRESSION: NORMAL EXAMINAn REASON: right hand swelling ORDERING PHYSICIAN: ANISHA BARRAGAN MD PROCEDURE: VENOUS UNI - US VENOUS DOPPLER UNILATERAL Exam Type: US VENOUS DOPPLER UNILATERAL Clinical Information: right hand swelling Comparison: None Findings: The examination shows normal deep venous system. There is normal compressibility at all levels. There is no intraluminal clot. There is no occlusion. Adequate response is obtained on augmentation. Impression: No evidence of DVT. REASON: SWELLING ORDERING PHYSICIAN: ANISHA BARRAGAN MD PROCEDURE: HAND 3V RT - HAND 3+VWS RT Exam Type: HAND 3+VWS RT Clinical Information: SWELLING Comparison: None Findings and impression: Fracture distal tip distal phalanx of the fourth digit. It is unclear whether this represents an acute injury. No other abnormalities are seen. REASON: elevated ddimer, bilateral LE edema ORDERING PHYSICIAN: RITU MALDONADO PROCEDURE: VENOUS PIPPA - US VENOUS DOPPLER BILATERAL Exam Type: US VENOUS DOPPLER BILATERAL Clinical Information: elevated ddimer, bilateral LE edema Comparison: None Findings: The examination shows normal deep venous system. There is normal compressibility at all levels. There is no intraluminal clot. There is no occlusion. Adequate response is obtained on augmentation. Impression: No evidence of DVT. REASON: swelling to right arm up to forearm; rule out dvt ORDERING PHYSICIAN: JED DRAKE NP PROCEDURE: VENOUS UNI - US VENOUS DOPPLER UNILATERAL ULTRASOUND VENOUS DOPPLER RIGHT UPPER EXTREMITY INDICATION: Swelling. TECHNIQUE: Routine grayscale and color and spectral Doppler ultrasound of the right upper extremity veins performed in real-time, and images subsequently made available for review. COMPARISON: None FINDINGS: IV catheter occupies the basilic vein. Normal compression, vascular antegrade flow, respiratory variation and spectral waveforms identified within the right internal jugular vein, subclavian vein, axillary vein, brachial vein, cephalic vein, and basilic vein. No evidence for an intraluminal thrombus. No soft tissue abnormalities demonstrated. IMPRESSION: No evidence for right upper extremity venous thrombosis. REASON: RULE OUT PE, ELEVATED DDIMER ORDERING PHYSICIAN: RITU MALDONADO PROCEDURE: CHES PE - CT CHEST PE PROTOCOL WWO CONT CT angiogram chest CLINICAL INDICATION: RULE OUT PE, ELEVATED DDIMER COMPARISON: None. CT Dose Index (CTDI): 113.50 mGy Dose Length Product (DLP): 1408.10 total mGy PROTOCOL: Contrast: 100 cc of Isovue-370, injected IV, no complications Examination is done at 2.5 millimeter volumetric acquisition after contrast administration. Photography is done at 5 millimeter thick intervals for the thorax. FINDINGS: There is no evidence of pulmonary embolism. The airway is intact. The trachea and major bronchi are unremarkable. No pulmonary infiltrates or mass lesions are seen. Small bilateral pleural effusions. The exam of the ember and mediastinum is unremarkable. No evidence of hilar enlargement is seen. The aorta shows no aneurysmal dilatation or significant atheromatous calcification. There is no thoracic aortic dissection. No significant brachiocephalic vascular abnormalities are seen. The heart is unremarkable. It is not enlarged. No significant coronary arterial calcifications are seen. There is no pericardial effusion. The rib cage appears unremarkable. The soft tissues of the chest wall are unremarkable. The dorsal spine shows no significant abnormalities. Upper abdomen demonstrates splenomegaly, coarse surface of the liver, hypertrophy of the liver caudate lobe and ascites as well as splenic hilar varices and these findings may indicate cirrhosis. Please correlate. IMPRESSION: No evidence of pulmonary embolism. Bilateral pleural effusions. Possible cirrhosis. REASON: RIGHT ARM SWELLING ORDERING PHYSICIAN: KUSH BLACK MD PROCEDURE: UPP EXT W - CT UPPER EXT W/CONTRAST Exam Type: CT UPPER EXT W/CONTRAST Clinical Information: RIGHT ARM SWELLING Comparison: None Findings: The bone examination is unremarkable. No fractures or dislocations are seen. No radiopaque foreign bodies are noted. Soft tissues are preserved. Arteriogram demonstrates normal arterial vascularity of the upper extremity on the right side. IMPRESSION: Normal examination. REASON: swelling ORDERING PHYSICIAN: JED DRAKE NP PROCEDURE: ELB3VW RT - ELBOW COMP 3+VWS RT Exam Type: ELBOW COMP 3+VWS RT Clinical Information: swelling Comparison: None Findings: The bone examination is unremarkable. No fractures or dislocations are seen. No radiopaque foreign bodies are noted. Soft tissue swelling over the dorsum of the elbow may represent cellulitis or bursitis. Please correlate. IMPRESSION: Soft tissue swelling over the dorsum of the elbow may represent cellulitis or bursitis. Please correlate. REASON: swelling ORDERING PHYSICIAN: JED DRAKE NP PROCEDURE: WRST 3V RT - WRIST COMP 3+VWS RT Exam Type: WRIST COMP 3+VWS RT Clinical Information: swelling Comparison: None Findings: The bone examination is unremarkable. No fractures or dislocations are seen. No radiopaque foreign bodies are noted. Soft tissue swelling of the dorsum of the hand suggestive of cellulitis. IMPRESSION: Normal bony exam. Dorsum cellulitis. REASON: R/O DVT- RIGHT UPPER EXTREMITY (OLD MIDLINE SITE) ORDERING PHYSICIAN: JED DRAKE NP PROCEDURE: VENOUS UNI - US VENOUS DOPPLER UNILATERAL ULTRASOUND VENOUS DOPPLER RIGHT UPPER EXTREMITY INDICATION: Swelling. TECHNIQUE: Routine grayscale and color and spectral Doppler ultrasound of the right upper extremity veins performed in real-time, and images subsequently made available for review. COMPARISON: None FINDINGS: Normal compression, vascular antegrade flow, respiratory variation and spectral waveforms identified within the right internal jugular vein, subclavian vein, axillary vein, brachial vein, cephalic vein, and basilic vein. No evidence for an intraluminal thrombus. No soft tissue abnormalities demonstrated. IMPRESSION: No evidence for right upper extremity venous thrombosis. REASON: swelling, numbness ORDERING PHYSICIAN: CUATE MAGANA APRN PROCEDURE: WRST 2V RT - WRIST 2VWS RT Exam Type: WRIST 2VWS RT Clinical Information: swelling, numbness Comparison: None Findings: The bone examination is unremarkable. No fractures or dislocations are seen. No radiopaque foreign bodies are noted. Soft tissues are preserved. IMPRESSION: Normal examination. REASON: limiited ROM and swelling ORDERING PHYSICIAN: JED DRAKE NP PROCEDURE: SHOL 2V LT - SHOULDER COMP 2+VWS LT SHOULDER COMP 2+VWS LT INDICATION: Limited ROM and swelling TECHNIQUE: SHOULDER COMP 2+VWS LT. FINDINGS AND IMPRESSION: No displaced fracture or dislocation is seen. Correlate clinically. There is mild soft tissue swelling. Mild degenerative changes of the AC joint is seen. No radiopaque foreign body is identified. Procedure(s): s/p EGD: findings; nonbleeding gastric ulcer with a clean ulcer base Rufino class III , acute gastritis, portal hypertensive gastropathy, large greater 5 mm esophageal varices, esophagogastric landmarks normal duodenal bulb and 2nd portion of the duodenum, Dr. Vela's recommendations low-sodium diet Protonix 40 mg twice a day for eight weeks and give a beta-jose elias with dosage titrate by the heart rate return in clinic two weeks repeat upper GI EGD six months to evaluate the response to therapy. Assessment/Plan: Discharged dx's; Severe anemia, POA requiring blood transfusion POA status post EGD: findings; nonbleeding gastric ulcer with a clean ulcer base Rufino class III , acute gastritis, portal hypertensive gastropathy, large greater 5 mm esophageal varices, esophagogastric landmarks normal duodenal bulb and 2nd portion of the duodenum, suspecting transfusion reaction on this admission POA Cirrhotic liver with enlarged spleen, per CT 09/24/2024 Abdominal varices, per CT 09/24/2024 Small ascites, per CT 09/24/2024 Mild pulmonary vascular congestion or interstitial infiltrates, per chest x-ray on 09/24/2024 Thrombocytopenia, POA Bilateral lower extremity edema unilateral swelling to right forearm /hand POA Elevated D-dimer rule out PE/DVT Hyperglycemia Protein calorie malnutrition/hypoalbuminemia Obese, BMI 34.4 Hx of upper GI bleed likely esophageal varices, possible ulcers-cause NSAIDs use [hx of Ardosons (Indomethacine) use] History of esophageal varus, EGD UTI: gram negative Proteus Mirabilis not POA Iron Deficiency POA PLAN: ADMISSION DATE: 09/25/24 DISCHARGE DATE: 10/02/2024 DISPOSITION: Home CONDITION: Stable TECHNICAL SUPPORT MANAGER(S): Orthopedic, GI FOLLOW UP APPOINTMENT(S): PCP DR Dixon Chiang 2-3 days will need referral: circulating nurse outpatient DR valencia one wk: splint of othroglass; Dr Vela one wk PROCEDURES: EGD Patient received blood transfusion on this admission 2 units. IMAGING (S) report attached to summary : Multiple x-ray of wrist shoulder elbow. Venous Doppler multiple abdomen pelvis CT scan. MICROBIOLOGY: report attached to summary; ACTIVITY: ab claudette: arm sling to right arm: will follow up with DR Valencia for ulnar gutter splint of othroglass HOME MEDICATIONS remain the same CHANGES ON HOME MEDICATIONS none NEW MEDICATIONS protonix 40 mg po bid for 8 wks TEACHING: Advised to keep arm elevated. Emergency instructions: The patient was instructed to present to the nearest Emergency Department or call 911 should their symptoms return or worsen. Discharge Instructions: Item Value Date Time White Blood Count 5.5 K/uL # 10/02/24 0428 Red Blood Count 3.76 MIL/uL L 10/02/24 0428 Hemoglobin 7.5 g/dL L 10/02/24 0428 Hematocrit 26.3 % L 10/02/24 0428 Mean Corpuscular Volume 69.9 fL L 10/02/24 0428 Mean Corpuscular Hemoglobin 19.9 pg L 10/02/24 0428 Mean Corpuscular Hemoglobin Concent 28.5 g/dL L 10/02/24 0428 Red Cell Distribution Width 22.1 % H 10/02/24 0428 Platelet Count 64 K/uL L 10/02/24 0428 Mean Platelet Volume 9.5 fL 10/02/24 0428 Immature Granulocyte % (Auto) 0.4 % 10/02/24 0428 Neutrophils (%) (Auto) 74.7 % 10/02/24 0428 Lymphocytes (%) (Auto) 15.1 % L 10/02/24 0428 Monocytes (%) (Auto) 7.6 % 10/02/24 0428 Eosinophils (%) (Auto) 2.0 % 10/02/24 0428 Basophils (%) (Auto) 0.2 % 10/02/24 0428 Neutrophils # (Auto) 4.1 K/uL 10/02/24 0428 Lymphocytes # (Auto) 0.8 K/uL L 10/02/24 0428 Monocytes # (Auto) 0.4 K/uL 10/02/24 0428 Eosinophils # (Auto) 0.11 K/uL 10/02/24 0428 Basophils # (Auto) 0.01 K/uL 10/02/24 0428 Absolute Immature Granulocyte (auto 0.02 K/uL 10/02/24 0428 Nucleated Red Blood Cells 0.0 % 10/02/24 0428 Platelet Morphology Comment See comments 10/02/24 042 Red Blood Cell Morphology See comments 10/02/24 0428 Sodium Level 133 mmol/L L 10/02/24 0428 Potassium Level 3.8 mmol/L 10/02/24 0428 Chloride Level 100 mmol/L L 10/02/24 0428 Carbon Dioxide Level 29 mmol/L 10/02/24 0428 Blood Urea Nitrogen 12 mg/dL 10/02/24 0428 Creatinine 0.6 mg/dL 10/02/24 0428 Glomerular Filtration Rate Calc 118 mL/min 10/02/24 0428 Random Glucose 99 mg/dL 10/02/24 0428 Total Calcium 7.2 mg/dL L 10/02/24 0428 Magnesium Level 1.60 mg/dL L 10/02/24 0428 Albumin 1.6 g/dL L 10/02/24 0428 Triglycerides Level 35 mg/dL 09/28/24 0535 Cholesterol Level 82 mg/dL 09/28/24 0535 LDL Cholesterol 41 mg/dL 09/28/24 0535 HDL Cholesterol 39 mg/dL 09/28/24 0535 Vitamin B12 Level 2973 pg/mL H 09/28/24 0535 Alanine Aminotransferase (ALT/SGPT) 25 U/L 09/28/24 0535 Alkaline Phosphatase 86 U/L 09/28/24 0535 Total Bilirubin 1.4 mg/dL H 09/28/24 0535 Iron Level 24 mcg/dL L # 09/27/24 1209 Total Iron Binding Capacity 205 mcg/dL L 09/27/24 1209 Percent Iron Saturation 11.7 % L 09/27/24 1209 Total Bilirubin 1.5 mg/dL H # 09/27/24 0435 Urine Color YELLOW 09/25/24 1220 Urine Appearance CLEAR 09/25/24 1220 Urine pH 7.0 09/25/24 1220 Urine Specific [place] 1.024 09/25/24 1220 Urine Protein 10 mg/dL H 09/25/24 1220 Urine Glucose (UA) NEGATIVE mg/dL 09/25/24 1220 Urine Ketones NEGATIVE mg/dL 09/25/24 1220 Urine Occult Blood SMALL H 09/25/24 1220 Urine Nitrate NEGATIVE 09/25/24 1220 Urine Urobilinogen 12 mg/dL H 09/25/24 1220 Urine Bilirubin NEGATIVE mg/dL 09/25/24 1220 Urine Leukocyte Esterase NEGATIVE Leanna/uL 09/25/24 1220 Urine RBC 2-5 /HPF H 09/25/24 1220 Urine WBC 2-5 /HPF H 09/25/24 1220 Urine Squamous Epithelial Cells RARE /HPF 09/25/24 1220 Urine Bacteria None /HPF 09/25/24 1220 HIV (1&2) Antibody Non-Reactive 09/25/24 1052 HIV P24 Antigen, Qualitative Non-Reactive 09/25/24 1052 Urine Opiates Screen NEGATIVE 09/25/24 1220 Urine Barbiturates Screen NEGATIVE 09/25/24 1220 Urine Phencyclidine Screen NEGATIVE 09/25/24 1220 Urine Amphetamines Screen NEGATIVE 09/25/24 1220 Urine Benzodiazepines Screen NEGATIVE 09/25/24 1220 Urine Cocaine Screen NEGATIVE 09/25/24 1220 Urine Marijuana (THC) Screen NEGATIVE 09/25/24 1220 Home Medications: Active Scripts Propranolol HCl (Inderal) 10 Mg Tab, 10 MG PO BID for 30 Days, #60 TAB Prov:JED DRAKE NP 10/02/24 Pantoprazole Sodium (Protonix) 40 Mg Tablet.dr, 40 MG PO BID for 60 Days, #60 TAB Prov:JED DRAKE NP 10/02/24 Lidocaine (Lidocaine Pain Relief) 4 % Adh..patch, 1 EACH TP DAILY for 7 Days, #7 ADH.PATCH Prov:JED DRAKE NP 10/02/24 Folic Acid (Folvite) 1 Mg Tab, 1 MG PO DAILY for 30 Days, #30 TAB Prov:JED DRAKE NP 10/02/24 Discontinued Scripts Pantoprazole Sodium (Protonix IV) 40 Mg Vial, 40 MG PO DAILY for 60 Days, #60 MG Prov:JED DRAKE NP 06/05/23 Propranolol HCl (Inderal) 10 Mg Tab, 10 MG PO DAILY for 30 Days, #30 TAB Prov:JED DRAKE NP 06/05/23 Pantoprazole Sodium (Pantoprazole Sodium) 40 Mg Tablet., 40 MG PO DAILY, #30 TAB 2 Refills Prov:CHRISTIANO OCONNOR Gideon [employer]IM TURNING FINISHER 12/24/21 New Medications: Folic Acid (Folvite) 1 Mg Tab 1 MG PO DAILY for 30 Days, #30 TAB Lidocaine (Lidocaine Pain Relief) 4 % Adh..patch 1 EACH TP DAILY for 7 Days, #7 ADH.PATCH Pantoprazole Sodium (Protonix) 40 Mg Tablet.dr 40 MG PO BID for 60 Days, #60 TAB Propranolol HCl (Inderal) 10 Mg Tab 10 MG PO BID for 30 Days, #60 TAB Time spent arranging discharge: 31-60 minutes ATTESTATION BY PHYSICIAN I have seen and examined the patient. I reviewed the documentation, medical decision making, and treatment plan as noted by the mid-level provider above. I agree with the findings and plan of care. Alisha Springer MD, [employer] SUPPORT WORKER October 02, 2024 08:35
[2024-10-02 12:02] VITALS: BP 124/68; PULSE 73; RESP 18; TEMP 98.4
--- NOTE | 2024-10-02 13:40 | NUR ---
PATIENT DISCHARGED HOME ID BAND AND IV REMOVED. DISCHARGE INSTRUCTIONS EXPLAINED AND GIVEN TO PATIENT IN [place]. PATIENT VERBALIZED UNDERSTANDING. BELONGINGS PACKED AND TAKEN BY PATIENT. WHEELED DOWN TO PRIVATE CAR.
== END 2024-10-02 13:40 | disposition home or self-care (01) | DRG 546 ==
LOC: EDH 19:25 → EDHIP 09-25 03:59 → 3BH 09-25 05:18
PROVIDERS: ADMIT Internal Medicine Sleep Medicine; ATTEND Internal Medicine Sleep Medicine
PROC: 05HB33Z Insertion of Infusion Device into Right Basilic Vein, Percutaneous Approach (ICD-10-PCS; 2024-09-25)
PROC: B54MZZA Ultrasonography of Right Upper Extremity Veins, Guidance (ICD-10-PCS; 2024-09-25)
PROC: 30233N1 Transfusion of Nonautologous Red Blood Cells into Peripheral Vein, Percutaneous Approach (ICD-10-PCS; 2024-09-25)
PROC: 0DJ08ZZ Inspection of Upper Intestinal Tract, Via Natural or Artificial Opening Endoscopic (ICD-10-PCS; principal; 2024-09-26)
DX: M06.841 Other specified rheumatoid arthritis, right hand (principal); D68.9 Coagulation defect, unspecified; E46 Unspecified protein-calorie malnutrition; R18.8 Other ascites; N39.0 Urinary tract infection, site not specified; K76.6 Portal hypertension; I85.00 Esophageal varices without bleeding; D64.9 Anemia, unspecified; M06.871 Other specified rheumatoid arthritis, right ankle and foot; K74.60 Unspecified cirrhosis of liver; D69.6 Thrombocytopenia, unspecified; K29.00 Acute gastritis without bleeding; E66.9 Obesity, unspecified; K31.89 Other diseases of stomach and duodenum; E88.09 Other disorders of plasma-protein metabolism, not elsewhere classified; Z68.34 Body mass index [BMI] 34.0-34.9, adult; I10 Essential (primary) hypertension; Z53.20 Procedure and treatment not carried out because of patient's decision for unspecified reasons; Z82.49 Family history of ischemic heart disease and other diseases of the circulatory system; Z83.3 Family history of diabetes mellitus; Z87.11 Personal history of peptic ulcer disease; Z79.899 Other long term (current) drug therapy; T80.92XA Unspecified transfusion reaction, initial encounter; M06.8A Other specified rheumatoid arthritis, other specified site
CPT/HCPCS: 36415; 36556; 43235; 71045; 71270; 73030; 73080; 73100; 73110; 73130; 73201; 74178; 80053; 80061; 80074; 80305; 81001; 82306; 82550; 82607; 82728; 82746; 82948; 83036; 83540; 83550; 83605; 83735; 83880; 84100; 84145; 84443; 84484; 85014; 85018; 85025; 85027; 85378; 85384; 85610; 85651; 86078; 86140; 86701; 86850; 86900; 86901; 86923; 87086; 87186; 87390; 87449; 93005; 93970; 93971; 96374; 96375; 99285; A4606; C1894; G0378; J0696; J1171; J1815; J1940; J2003; J2270; J2354; J2405; J2470; J2543; J2704; J3475; J7030; J7050; P9016; Q9967; A4215; A4222; A4223; A4620; C1750; J3490